=== PATIENT | male | born 1990 | race Caucasian/White ===

== ENCOUNTER 2020-10-29 03:24 | Emergency (ER) | payer OTHER, SELFPAY ==
[2020-10-29 03:27] VITALS: BP 170/88; PULSE 83; RESP 16; TEMP 36.1; O2SAT 100; BMI 34.4
--- NOTE | 2020-10-29 03:48 | ED.GENADULT ---
HPI - General Adult General Chief complaint: General Medical Stated complaint: BACK PAIN Time Seen by Provider: 10/29/20 03:48 History of Present Illness HPI narrative: Patient is a 30-year-old male with no significant past medical history. Presents today with having a bump that is noted in his back. Patient denies any fever chills. No nausea no vomiting. No bowel urinary incontinence. No focal weakness. Ambulates with a normal gait. Patient is able to have bowel movements. no trauma Review of Systems Review of Systems: Constitutional: No Weight loss, No Fever, No Chills, No Night Sweats, No Fatigue, No Malaise ENT/Mouth: No Hearing loss, No Ear Pain, No Nasal Congestion, No Sinus Pain, No Hoarseness, No sore throat, No Rhinorrhea, No Swallowing Difficulty Eyes: No Eye Pain, No Swelling, No Redness, No Foreign Body, No Discharge, No Vision Changes Cardiovascular: No Chest Pain, No SOB, No Dyspnea on Exertion, No Orthopnea, No Edema, No Palpitations Respiratory: No Cough, No Sputum, No Wheezing, No Smoke Exposure, No Dyspnea Gastrointestinal: No Nausea, No Vomiting, No Diarrhea, No Constipation, No abdominal Pain, No Hematochezia, No Melena Genitourinary: no irregular bleeding, No Dysuria, No Urinary Frequency, No Hematuria, No Urinary Incontinence, No Urgency, No Flank Pain, No Urinary Flow Changes, No Hesitancy Musculoskeletal: No joint pain, No Myalgias, No Joint Swelling Skin: No Skin Lesions, No rash Neuro: No Weakness, No Numbness, No Paresthesias, No Loss of Consciousness, No Dizziness, No Headache Psych: No Anxiety/Panic, No Depression, No SI/HI/AH/VH, No Social Issues, Heme/Lymph: No Bruising, No Bleeding,No Lymphadenopathy Endocrine: No Polyuria, No Polydipsia, No Temperature Intolerance [facility] Past Medical History Attestation statement: The following information was validated with the patient. Medical History Anxiety Depressed Physical Exam Vital Signs: Vital Signs: Last Vital Signs Temp 96.9 F 10/29/20 03:27 Pulse 83 10/29/20 03:27 Resp 16 10/29/20 03:27 BP 170/88 H 12/07/20 03:27 Pulse Ox 100 10/29/20 03:27 Body Mass Index 34.4 Appearance: Alert. Oriented X3. No acute distress. Eyes: Pupils equal, round and reactive to light. ENT: Pharynx normal. Neck: Normal inspection. Neck supple. No lymph nodes noted. No crepitus CVS: Normal heart rate and rhythm. Pulses normal. Normal S1 and S2 Respiratory: No respiratory distress. Breath sounds normal. No Wheezing. No rales Abdomen: Soft and nontender. No rigidity. No distention. good BS x4 Skin: Skin warm and dry. Normal skin color. Normal skin turgor. examination of the back on the right side there is 3 cm x 3 cm movable mass. There is no paraspinal muscle tenderness elicited. There is no spinal tenderness elicited. Extremities: No lower extremity edema. Neurovascular intact to all extremities. No Lacerations. No Rash Neuro: Oriented X 3. No motor deficit. No sensory deficit. Moving all extermities. No slurred speech Medical Decision Making MDM Narrative Medical decision making narrative: Well-appearing no acute distress. Exam was negative. Question lipoma noted. Will have patient follow-up on an outpatient basis the symptom has been ongoing for months. In stable condition. Discharge Plan Discharge Clinical Impression: Lipoma Patient Disposition: Home, Self-Care Instructions: Lipoma (ED) Referrals: Indira Harry MD [Primary Care Provider] - 2 days
== END 2020-10-29 04:00 | disposition home or self-care (01) ==
LOC: HO.ED 04:23
PROVIDERS: Emergency Provider Emergency Medicine Emergency Medical Services; PCP Internal Medicine
DX: D17.1 Benign lipomatous neoplasm of skin and subcutaneous tissue of trunk (principal)
CPT/HCPCS: 99283

== ENCOUNTER 2021-08-26 16:36 | Outpatient (REF) | payer OTHER, SELFPAY ==
[2021-08-26 17:00] LABS: MANUAL DIFF FLAG NO
[2021-08-26 18:06] LABS: Basophils Absolute Auto 0.1 X10*3/uL (0.0-0.2); Basophils Percent Auto 0.9 % (0-2); Eosinophils Absolute Auto 0.3 X10*3/uL (0.0-0.4); Eosinophils Percent Auto 3.9 % (0-4); Hematocrit 41.8 % (42-52); Hemoglobin 14.3 g/dl (14.0-18.0); Imm Gran Abs Auto 0.04 X10*3/uL (0.00-0.03); Imm Gran Pct Auto 0.5 % (0.0-0.4); Lymphocytes Absolute Auto 1.8 X10*3/uL (1.2-4.9); Lymphocytes Percent Auto 24.3 % (20-40); Mean Corpuscular HGB Conc 34.2 g/dl (31.0-36.0); Mean Corpuscular Hemoglobin 29.2 pg (27.0-33.0); Mean Corpuscular Volume 85.3 fL (80-98); Mean Platelet Volume 9.4 fL (9.4-12.4); Monocytes Absolute Auto 1.1 X10*3/uL (0.1-1.2); Monocytes Percent Auto 14.1 % (2-11); Neutrophils Absolute Auto 4.2 X10*3/uL (2.0-8.3); Neutrophils Percent Auto 56.3 % (45-73); Platelet Count 348 X10*3/uL (160-400); Red Cell Distribution Width 11.7 % (11.0-16.0); White Blood Count 7.5 X10*3/uL (4.8-10.8)
[2021-08-26 18:28] LABS: Alanine Aminotransferase 61 U/L (0-40); Albumin Level 4.5 g/dL (3.5-5.0); Alkaline Phosphatase 67 U/L (39-117); Anion Gap 13 (12-20); Aspartate Amino Transferase 34 U/L (5-37); Bilirubin Total 1.6 mg/dL (0.0-1.0); Blood Urea Nitrogen 13 mg/dL (9-16); Calcium 9.5 mg/dL (8.4-10.2); Carbon Dioxide 27 mmol/L (22-29); Chloride 103 mmol/L (96-108); Cholesterol 246 mg/dL; Estimated Glomerular Filt Rate > 60; Glucose Random 86 mg/dL (60-115); HDL Cholesterol 40 mg/dL; Potassium 4.3 mmol/L (3.3-5.1); Sodium 139 mmol/L (135-145); Total Protein 7.5 g/dL (6.5-8.0); Triglycerides 442 mg/dL
[2021-08-26 18:50] LABS: Free T4 (Free Thyroxine) 1.03 ng/dL (0.71-1.85); Thyroid Stimulating Hormone 1.33 uIU/mL (0.32-4.0)
[2021-08-26 19:00] LABS: Folate 17.5 ng/mL (> or = 4.0); Vitamin B12 229 pg/mL (200-900)
== END 2021-08-26 16:37 | disposition home or self-care (01) ==
LOC: HO.LAB 16:36
PROVIDERS: Visit Provider Internal Medicine
DX: E78.00 Pure hypercholesterolemia, unspecified (principal)
CPT/HCPCS: 36415; 80053; 80061; 82607; 82746; 84439; 84443; 85025

== ENCOUNTER → 2021-09-26 15:34 | Outpatient (BNVA) | payer OTHER, SELFPAY | PROVIDERS: PCP Internal Medicine; Referring Provider Internal Medicine; Visit Provider Surgery | DX: L72.0 Epidermal cyst (principal) | CPT/HCPCS: 99202 ==

== ENCOUNTER 2022-01-09 09:58 | Outpatient (REF) | payer OTHER, SELFPAY ==
--- NOTE | ~2022-01-09 | US_ITS ---
EXAMINATION: US ABDOMEN COMPLETE CLINICAL INFORMATION: Other specify abnormal findings of blood chemistry. COMPARISON: Ultrasound abdomen 02/22/2015. TECHNIQUE: Real-time imaging of the abdominal viscera. FINDINGS: PANCREAS: The majority of the pancreas is obscured by overlying bowel gas. The visualized portions of the pancreatic head are within normal limits. ABDOMINAL AORTA: The proximal, mid, and distal segments are normal in caliber. INFERIOR VENA CAVA: Visualized portions are normal. LIVER: The liver is normal in size. The liver contour is normal. There is diffuse increased liver parenchymal echogenicity, consistent with hepatic steatosis. No focal hepatic lesion. There is no intrahepatic biliary duct dilatation seen. GALLBLADDER: Normal. The gallbladder is physiologically distended without evidence of stones, sludge, polyps, wall thickening or pericholecystic fluid. COMMON BILE DUCT: Normal in caliber measuring 0.4 cm in diameter. RIGHT KIDNEY: Normal. No hydronephrosis. No renal calculi or focal parenchymal lesions. The kidney measures 10.4 cm in maximum dimension. LEFT KIDNEY: Normal. No hydronephrosis. No renal calculi or focal parenchymal lesions. The kidney measures 10.8 cm in maximum dimension. SPLEEN: Normal. The spleen measures 8.9 cm in maximum dimension. FREE FLUID: None. US/US abdomen complete IMPRESSION: Examination is partially limited due to shadowing from overlying bowel gas. Specifically, the majority of the pancreas is obscured. Increased liver echogenicity is most consistent with hepatic steatosis. Otherwise, normal examination.
== END 2022-01-09 09:59 | disposition home or self-care (01) ==
LOC: HO.US 09:58
PROVIDERS: PCP Internal Medicine; Visit Provider Internal Medicine
DX: R79.89 Other specified abnormal findings of blood chemistry (principal); E80.6 Other disorders of bilirubin metabolism
CPT/HCPCS: 76700

== ENCOUNTER 2023-02-23 13:55 | Outpatient (REF) | payer OTHER, SELFPAY ==
[2023-02-23 14:05] LABS: MANUAL DIFF FLAG NO
[2023-02-23 14:19] LABS: Basophils Absolute Auto 0.1 X10*3/uL (0.0-0.2); Basophils Percent Auto 1.1 % (0-2); Eosinophils Absolute Auto 0.1 X10*3/uL (0.0-0.4); Eosinophils Percent Auto 2.4 % (0-4); Hemoglobin 15.7 g/dl (14.0-18.0); Imm Gran Abs Auto 0.02 X10*3/uL (0.00-0.03); Imm Gran Pct Auto 0.4 % (0.0-0.4); Lymphocytes Absolute Auto 1.6 X10*3/uL (1.2-4.9); Lymphocytes Percent Auto 29.3 % (20-40); Mean Corpuscular HGB Conc 34.1 g/dl (31.0-36.0); Mean Corpuscular Hemoglobin 29.1 pg (27.0-33.0); Mean Corpuscular Volume 85.2 fL (80.0-98.0); Mean Platelet Volume 9.6 fL (9.4-12.4); Monocytes Absolute Auto 0.6 X10*3/uL (0.1-1.2); Monocytes Percent Auto 10.4 % (2-11); Neutrophils Absolute Auto 3.1 x10*3/uL (2.0-8.3); Neutrophils Percent Auto 56.4 % (45-73); Platelet Count 374 X10*3/uL (160-400); Red Cell Distribution Width 11.5 % (11.0-16.0); White Blood Count 5.5 X10*3/uL (4.8-10.8)
[2023-02-23 15:06] LABS: Alanine Aminotransferase 24 U/L (0-40); Albumin Level 4.9 g/dL (3.5-5.0); Alkaline Phosphatase 70 U/L (39-117); Anion Gap 15 (12-20); Aspartate Amino Transferase 20 U/L (5-37); Bilirubin Total 3.5 mg/dL (0.0-1.0); Blood Urea Nitrogen 13 mg/dL (9-16); Calcium 10.2 mg/dL (8.4-10.2); Carbon Dioxide 28 mmol/L (22-29); Chloride 105 mmol/L (96-108); Cholesterol 199 mg/dL; Estimated Glomerular Filt Rate > 60; Glucose Random 84 mg/dL (60-115); HDL Cholesterol 43 mg/dL; LDL Cholesterol Calculated 136 mg/dl; Potassium 4.5 mmol/L (3.3-5.1); Sodium 143 mmol/L (135-145); Total Protein 7.7 g/dL (6.5-8.0); Triglycerides 101 mg/dL
[2023-02-23 15:26] LABS: Folate 16.7 ng/mL (> or = 4.0); Free T4 (Free Thyroxine) 1.05 ng/dL (0.71-1.85); Vitamin B12 394 pg/mL (200-900)
== END 2023-02-23 13:56 | disposition home or self-care (01) ==
LOC: HO.LAB 13:55
PROVIDERS: PCP Internal Medicine; Visit Provider Internal Medicine
DX: E78.00 Pure hypercholesterolemia, unspecified (principal)
CPT/HCPCS: 36415; 80053; 80061; 82607; 82746; 84439; 84443; 85025

== ENCOUNTER 2023-04-12 18:36 | Emergency (ER) | payer OTHER, SELFPAY ==
--- NOTE | ~2023-04-12 | US_ITS ---
EXAMINATION: US ABDOMEN LIMITED CLINICAL INFORMATION: Gallbladder evaluation. COMPARISON: 01/09/2022 TECHNIQUE: Real-time imaging of the gallbladder. FINDINGS: Gallbladder is physiologically distended. No evidence of gallstones or sludge. Gallbladder wall thickness is within normal limits. Sonographic Bal sign is reportedly negative. Common bile duct measures 0.2 cm in diameter. US/US abdomen limited IMPRESSION: Normal appearance of the gallbladder.
--- NOTE | ~2023-04-12 | XR_ITS ---
EXAMINATION: XR ABDOMEN KUB CLINICAL INDICATION: Constipation COMPARISON: None available. TECHNIQUE: AP view of the abdomen. FINDINGS: Bowel gas pattern is nonobstructive. Scattered relatively mild amount of stool in the colon. No significant stool in the rectum. No suspicious calcifications are seen. No acute osseous findings are seen. XR/XR KUB IMPRESSION: Nonobstructive bowel gas pattern. Scattered mild volume of stool.
[2023-04-12 18:52] VITALS: BP 130/69; PULSE 86; RESP 16; TEMP 36.6; O2SAT 96; BMI 34.2
--- NOTE | 2023-04-12 19:44 | PC.NURSE ---
aox4 c/o n/v/sore thrt, abd pain for 3 months (abd pain) no apparent distress labs drawn and sent via tube system pt instructed to collect urine sample
[2023-04-12 19:49] LABS: MANUAL DIFF FLAG NO
[2023-04-12 19:51] LABS: Basophils Absolute Auto 0.1 X10*3/uL (0.0-0.2); Basophils Percent Auto 1.1 % (0-2); Eosinophils Absolute Auto 0.3 X10*3/uL (0.0-0.4); Eosinophils Percent Auto 5.1 % (0-4); Hematocrit 44.9 % (42.0-52.0); Hemoglobin 15.6 g/dl (14.0-18.0); Imm Gran Abs Auto 0.02 X10*3/uL (0.00-0.03); Imm Gran Pct Auto 0.3 % (0.0-0.4); Lymphocytes Absolute Auto 1.7 X10*3/uL (1.2-4.9); Lymphocytes Percent Auto 26.4 % (20-40); Mean Corpuscular HGB Conc 34.7 g/dl (31.0-36.0); Mean Corpuscular Hemoglobin 29.2 pg (27.0-33.0); Mean Corpuscular Volume 83.9 fL (80.0-98.0); Mean Platelet Volume 9.2 fL (9.4-12.4); Monocytes Absolute Auto 0.9 X10*3/uL (0.1-1.2); Monocytes Percent Auto 14.6 % (2-11); Neutrophils Absolute Auto 3.4 x10*3/uL (2.0-8.3); Neutrophils Percent Auto 52.5 % (45-73); Platelet Count 415 X10*3/uL (160-400); Red Blood Count 5.35 X10*6/uL (4.60-5.80); Red Cell Distribution Width 11.8 % (11.0-16.0); White Blood Count 6.4 X10*3/uL (4.8-10.8)
[2023-04-12 20:00] VITALS: BP 123/82; PULSE 77; RESP 16; TEMP 37.5; O2SAT 98
--- NOTE | 2023-04-12 20:00 | ED_ITS ---
HPI - General Adult General Chief complaint: Abdominal Pain Stated complaint: Abd pain/dizziness/weakness Time Seen by Provider: 04/12/23 19:37 Source: patient, RN notes reviewed and old records reviewed Mode of arrival: ambulatory Limitations: no limitations History of Present Illness HPI narrative: 33-year-old male presents for evaluation of upper abdominal pain weakness Patient reports he is ?felt off for 3 months. ? His pain is mostly left-sided He reports that he saw his doctor a month or 2 ago and had blood work and was told ?everything is normal. ? He was referred to Gastroenterology for have not yet seen them Patient states that his pain tends to be worse after eating He also complains of a sore throat and constipation Denies any history abdominal surgeries Denies any black or bloody stool No other complaints or concerns at this time. Related Data Previous Rx's Medication Instructions Recorded omeprazole 20 mg capsule,delayed 20 mg PO DAILY #30 caps 02/23/23 release omeprazole 20 mg capsule,delayed 20 mg PO DAILY #20 caps 04/12/23 release polyethylene glycol 3350 17 17 g PO DAILY 2 weeks #238 grams 04/12/23 gram/dose oral powder (Miralax) Allergies Allergy/AdvReac Type Severity Reaction Status Date / Time No Known Allergies Allergy Verified 04/12/23 18:51 Review of Systems Constitutional: Constitutional: Reports as per HPI, Denies chills, Denies fatigue, Denies fever(s) and Denies headache(s) ENT: Denies headache(s) Cardiovascular: Cardiovascular: Denies chest pain and Denies dyspnea Respiratory: Respiratory: Denies cough and Denies dyspnea Gastrointestinal: Gastrointestinal: Reports abdominal pain, Reports constipation, Denies diarrhea, Reports nausea and Denies vomiting Genitourinary: Genitourinary: Denies difficulty urinating and Denies dysuria Neurologic: Denies headache(s) and Denies focal weakness Endocrine: Endocrine: Denies fatigue [facility] Past Medical History Medical History (Updated 04/12/23 @ 23:06 by Wilmer Peters) Asthma Bipolar 1 disorder Epidermal cyst GERD (gastroesophageal reflux disease) Hyperbilirubinemia Hypercholesterolemia Insomnia Obesity (BMI 30-39.9) Surgical History History of chest tube placement Family History Family History Father Myocardial infarction Diabetes Mother Acute CVA (cerebrovascular accident) Maternal Grandfather Myocardial infarction Brother In good health Myocardial infarction Sister In good health Paternal Uncle Schizophrenia Other Mental health problem Substance abuse Social History Social History Housing: Apartment Alcohol intake: never Patient Tobacco Use Status: Never used Tobacco e-Cigarette/Vaping Use: Never Used Second Hand Smoke Exposure: Yes Advance Directives: No Advance Directives Information Provided: No service: No Current occupational status: disabled Cognitive needs: No Hearing needs: No Vision needs: Yes Physical Exam ED Vital Signs: Vital Signs - 24 hr 04/12/23 18:52 04/12/23 20:00 Temperature 97.8 F 99.5 F Pulse Rate 86 77 Respiratory Rate 16 16 Blood Pressure 130/69 123/82 Pulse Oximetry 96 98 Oxygen Delivery Method Room Air Room Air BMI result Body Mass Index 34.2 Const General: healthy appearing, comfortable, no acute distress, alert and awake Nutritional Appearance: well nourished Orientation/consciousness: patient oriented x3 HENMT Head: Yes normocephalic and Yes atraumatic Throat: Yes posterior oropharynx normal Resp Effort & Inspection: normal respiratory effort, no audible wheezes and not labored Cardio Rate: regular rate Rhythm: regular rhythm GI Inspection: No distended Palpation (GI): Soft to palpation, not firm, nontender, no guarding and not rigid Auscultation: normoactive bowel sounds Skin General skin exam: no rashes or lesions noted and elasticity normal Neuro General: patient oriented x3 Cranial nerves: Yes Bilaterally intact EOM present Cognition (Neuro): normal cognition Extrem Other: Moving all extremities well without any obvious deformities Medications Administered Discontinued Medications Generic Name Dose Route Start Last Admin Trade Name Freq PRN Reason Stop Dose Admin Al Hydroxide/Mg Hydroxide 30 ml 04/12/23 19:43 04/12/23 20:33 Magnesium Hydrox/Alum Hydrox 30 Ml Oral.Susp PO 04/12/23 19:44 30 ml ONCE ONE Administration Lidocaine HCl 15 ml 04/12/23 19:43 04/12/23 20:33 Lidocaine Hcl Viscous 2 % 15 Ml Solution MUCOUS MEM 04/12/23 19:44 15 ml ONCE ONE Administration Ondansetron HCl 4 mg 04/12/23 19:43 04/12/23 20:33 Ondansetron Odt 4 Mg Tab.Carly ALEXIS 04/12/23 19:44 4 mg ONCE ONE Administration Medical Decision Making Medical Decision Making [facility] Narrative: 33-year-old male presents for evaluation of abdominal pain. His symptoms have been present for 3 months, vital signs are stable, abdominal exam is reassuring. He has no rebound or guarding. Patient's history is most consistent with peptic ulcer disease. Will treat with GI cocktail while labs are pending. Will also get a KUB to evaluate for constipation but I doubt obstruction. Differential Diagnosis Abdominal pain Peptic ulcer disease Gastroenteritis Biliary disease Constipation Lab Data [facility] Lab Attestation statement: I reviewed the patient's lab results. (T bili was elevated at 3.7, therefore an ultrasound the gallbladder was ordered) 04/12/23 19:35 04/12/23 19:35 Labs: Lab Results 04/12/23 04/12/23 04/12/23 Range/Units 19:35 19:35 20:10 WBC 6.4 (4.8-10.8) X10*3/uL RBC 5.35 (4.60-5.80) X10*6/uL Hgb 15.6 (14.0-18.0) g/dl Hct 44.9 (42.0-52.0) % MCV 83.9 (80.0-98.0) fL MCH 29.2 (27.0-33.0) pg MCHC 34.7 (31.0-36.0) g/dl RDW 11.8 (11.0-16.0) % Plt Count 415 H (160-400) X10*3/uL MPV 9.2 L (9.4-12.4) fL Immature Gran % (Auto) 0.3 (0.0-0.4) % Neut % (Auto) 52.5 (45-73) % Lymph % (Auto) 26.4 (20-40) % [place] % (Auto) 14.6 H (2-11) % Eos % (Auto) 5.1 H (0-4) % Baso % (Auto) 1.1 (0-2) % Lymph # (Auto) 1.7 (1.2-4.9) X10*3/uL [place] # (Auto) 0.9 (0.1-1.2) X10*3/uL Eos # (Auto) 0.3 (0.0-0.4) X10*3/uL Baso # (Auto) 0.1 (0.0-0.2) X10*3/uL Abs Immat Gran (auto) 0.02 (0.00-0.03) X10*3/uL Absolute Neuts (auto) 3.4 (2.0-8.3) x10*3/uL Absolute Nucleated RBC 0.000 (0.0-0.012) X10*3/uL Nucleated RBC % (auto) 0.0 (0.0-0.2) /100WBC Sodium 142 (135-145) mmol/L Potassium 4.0 (3.3-5.1) mmol/L Chloride 107 (96-108) mmol/L Carbon Dioxide 26 (22-29) mmol/L Anion Gap 13 (12-20) BUN 12 (9-16) mg/dL Creatinine 1.03 (0.5-1.4) mg/dL Estim Creat Clear Calc 105.2 Estimated GFR > 60 Random Glucose 70 (60-115) mg/dL Calcium 9.8 (8.4-10.2) mg/dL Total Bilirubin 3.7 H (0.0-1.0) mg/dL AST 41 H (5-37) U/L ALT 37 (0-40) U/L Alkaline Phosphatase 68 (39-117) U/L Total Protein 7.4 (6.5-8.0) g/dL Albumin 4.6 (3.5-5.0) g/dL Urine Color Urine Appearance Urine pH (5.0-9.0) Ur Specific [place] (1.005-1.025) Urine Protein (Neg-Trace) mg/dL Urine Glucose (UA) (Negative) mg/dL Urine Ketones (Negative) mg/dL Urine Blood (Negative) Urine Nitrite (Negative) Ur Leukocyte Esterase (Negative) Urine RBC (0-2) /HPF Urine WBC (0-5) /HPF Ur Squamous Epith Cells (0-2) /HPF Calcium Oxalate Crystal Urine Bacteria (None Seen) Hyaline Casts (0-2) /LPF COVID-19 (BRYNN) (Negative) COVID-19 Clin Com Influenza Type A (LEIGHA) Negative (Negative) Influenza Type B (LEIGHA) Negative (Negative) Influenza A & B Note See Note 04/12/23 04/12/23 Range/Units 20:10 20:51 WBC (4.8-10.8) X10*3/uL RBC (4.60-5.80) X10*6/uL Hgb (14.0-18.0) g/dl Hct (42.0-52.0) % MCV (80.0-98.0) fL MCH (27.0-33.0) pg MCHC (31.0-36.0) g/dl RDW (11.0-16.0) % Plt Count (160-400) X10*3/uL MPV (9.4-12.4) fL Immature Gran % (Auto) (0.0-0.4) % Neut % (Auto) (45-73) % Lymph % (Auto) (20-40) % [place] % (Auto) (2-11) % Eos % (Auto) (0-4) % Baso % (Auto) (0-2) % Lymph # (Auto) (1.2-4.9) X10*3/uL [place] # (Auto) (0.1-1.2) X10*3/uL Eos # (Auto) (0.0-0.4) X10*3/uL Baso # (Auto) (0.0-0.2) X10*3/uL Abs Immat Gran (auto) (0.00-0.03) X10*3/uL Absolute Neuts (auto) (2.0-8.3) x10*3/uL Absolute Nucleated RBC (0.0-0.012) X10*3/uL Nucleated RBC % (auto) (0.0-0.2) /100WBC Sodium (135-145) mmol/L Potassium (3.3-5.1) mmol/L Chloride (96-108) mmol/L Carbon Dioxide (22-29) mmol/L Anion Gap (12-20) BUN (9-16) mg/dL Creatinine (0.5-1.4) mg/dL Estim Creat Clear Calc Estimated GFR Random Glucose (60-115) mg/dL Calcium (8.4-10.2) mg/dL Total Bilirubin (0.0-1.0) mg/dL AST (5-37) U/L ALT (0-40) U/L Alkaline Phosphatase (39-117) U/L Total Protein (6.5-8.0) g/dL Albumin (3.5-5.0) g/dL Urine Color Yellow Urine Appearance Turbid Urine pH 5.5 (5.0-9.0) Ur Specific [place] 1.025 (1.005-1.025) Urine Protein 30 (1+) H (Neg-Trace) mg/dL Urine Glucose (UA) Negative (Negative) mg/dL Urine Ketones Trace (Negative) mg/dL Urine Blood Negative (Negative) Urine Nitrite Negative (Negative) Ur Leukocyte Esterase Negative (Negative) Urine RBC 0-2 (0-2) /HPF Urine WBC 0-5 (0-5) /HPF Ur Squamous Epith Cells 0-2 (0-2) /HPF Calcium Oxalate Crystal Present Urine Bacteria None Seen (None Seen) Hyaline Casts 0-2 (0-2) /LPF COVID-19 (BRYNN) Negative (Negative) COVID-19 Clin Com See Note Influenza Type A (LEIGHA) (Negative) Influenza Type B (LEIGHA) (Negative) Influenza A & B Note Independent Interpretation I performed an independent interpretation of an: Plain X-Ray (Moderate constipation) and Ultrasound Radiology Impression Discussion of test interpretation with radiology: I have reviewed the radiologist's reading. Radiologist Impression: Unremarkable gallbladder ultrasound Discharge Plan Discharge Clinical Impression: Acute upper abdominal pain, Constipation Patient Disposition: Home, Self-Care Instructions: Peptic Ulcer (ED) Additional Instructions: Your pain is most likely related to gastritis and/or a stomach ulcer. Take omeprazole daily for the next 2 weeks Avoid spicy, greasy foods Follow-up with GI, Dr. Melvin Take MiraLax every night for the next 2 weeks to help treat constipation Increase fluid intake Increase fiber intake Prescriptions: New omeprazole 20 mg capsule,delayed release(DR/EC) 20 mg PO DAILY Qty: 20 0RF polyethylene glycol 3350 [Miralax] 17 gram/dose powder 17 g PO DAILY 14 Days Qty: 238 0RF No Action omeprazole 20 mg capsule,delayed release(DR/EC) 20 mg PO DAILY Qty: 30 0RF Referrals: Cj Melvin [Physician] - (? endoscopy for peptic ulcer disease)
[2023-04-12 20:05] LABS: Alanine Aminotransferase 37 U/L (0-40); Albumin Level 4.6 g/dL (3.5-5.0); Alkaline Phosphatase 68 U/L (39-117); Anion Gap 13 (12-20); Aspartate Amino Transferase 41 U/L (5-37); Bilirubin Total 3.7 mg/dL (0.0-1.0); Blood Urea Nitrogen 12 mg/dL (9-16); Calcium 9.8 mg/dL (8.4-10.2); Carbon Dioxide 26 mmol/L (22-29); Chloride 107 mmol/L (96-108); Creatinine Clr Calc Pharmacy 105.2; Estimated Glomerular Filt Rate > 60; Glucose Random 70 mg/dL (60-115); Sodium 142 mmol/L (135-145); Total Protein 7.4 g/dL (6.5-8.0)
--- NOTE | 2023-04-12 20:25 | MHC.EDTECH ---
pt vitals sign taken and covid and flu swab collected and sent to lab .
[2023-04-12] MEDS: Lidocaine HCl Viscous 2 % 15 ML SOLUTION MUCOUS MEM (20:33)
[2023-04-12] MEDS: Ondansetron ODT 4 MG TAB.RAPDIS TRANSLINGU (20:33)
[2023-04-12] MEDS: Magnesium Hydrox/Alum Hydrox 30 ML ORAL.SUSP PO (20:33)
[2023-04-12 20:35] LABS: COVID-19 Test Negative (Negative); IDNOW Serial# 9DB6401D; IDNOW Serial# BCCEAD1C; Influenza A Negative (Negative); Influenza B2 Negative (Negative)
--- NOTE | 2023-04-12 20:54 | PC.NURSE ---
labs for urine sent to lab via tube system
[2023-04-12 21:13] LABS: Appearance Urine Turbid; Color Urine Yellow; Glucose Urine UA Negative (Negative); Leukocyte Esterase Urine Negative (Negative); Nitrite Urine Negative (Negative); PH 5.5 (5.0-9.0); Specific Gravity - Urine 1.025 (1.005-1.025); UMIC TRIGGER UACC YES; Urine Blood Negative (Negative); Urine Ketones Trace mg/dL (Negative); Urine Protein 30 (1+) mg/dL (Neg-Trace)
[2023-04-12 21:27] LABS: Bacteria Urine None Seen (None Seen); Calcium Oxalate Crystals Urine Present; Hyaline Casts Urine 0-2 /LPF (0-2); RBC Urine 0-2 /HPF (0-2); Squamous Epithelial Cell Urine 0-2 /HPF (0-2); WBC Urine 0-5 /HPF (0-5)
[2023-04-12 22:00] VITALS: BP 118/57; PULSE 67; RESP 19; TEMP 37.1; O2SAT 97
--- NOTE | 2023-04-12 23:44 | PC.NURSE ---
abd pain resolved Discharge instructions given and explained to pt No apparent distress- pt denies pain Ambulates safely and independently AOx4
== END 2023-04-12 23:45 | disposition home or self-care (01) ==
PROVIDERS: Physician Assistant; Emergency Provider Internal Medicine; PCP Internal Medicine
DX: R10.13 Epigastric pain (principal); K59.00 Constipation, unspecified; Z20.822 Contact with and (suspected) exposure to COVID-19; Z20.828 Contact with and (suspected) exposure to other viral communicable diseases; Z79.899 Other long term (current) drug therapy
CPT/HCPCS: 36415; 74018; 76705; 80053; 81001; 85025; 87502; 87635; 99284

== ENCOUNTER 2023-04-21 08:15 | Outpatient (REF) | payer OTHER, SELFPAY ==
[2023-04-22 07:42] LABS: HIV AB/AG Nonreactive (Nonreactive); HIV Num 1 0.06 S/CO (0.00-0.99)
== END 2023-04-21 08:16 | disposition home or self-care (01) ==
LOC: HO.LAB 08:15
PROVIDERS: PCP Internal Medicine; Visit Provider Internal Medicine
DX: Z11.4 Encounter for screening for human immunodeficiency virus [HIV] (principal); R10.13 Epigastric pain
CPT/HCPCS: 36415; 87389

== ENCOUNTER 2023-04-21 21:58 | Emergency (ER) | payer OTHER, SELFPAY ==
[2023-04-21 22:05] VITALS: BP 119/71; PULSE 70; RESP 18; TEMP 36.1; O2SAT 100; BMI 32.6
[2023-04-21 22:31] LABS: MANUAL DIFF FLAG NO
[2023-04-21 22:36] LABS: Basophils Absolute Auto 0.1 X10*3/uL (0.0-0.2); Basophils Percent Auto 0.9 % (0-2); Eosinophils Absolute Auto 0.2 X10*3/uL (0.0-0.4); Eosinophils Percent Auto 2.9 % (0-4); Hematocrit 43.6 % (42.0-52.0); Hemoglobin 14.7 g/dl (14.0-18.0); Imm Gran Abs Auto 0.02 X10*3/uL (0.00-0.03); Imm Gran Pct Auto 0.3 % (0.0-0.4); Lymphocytes Absolute Auto 1.8 X10*3/uL (1.2-4.9); Lymphocytes Percent Auto 23.3 % (20-40); Mean Corpuscular HGB Conc 33.7 g/dl (31.0-36.0); Mean Corpuscular Hemoglobin 29.3 pg (27.0-33.0); Mean Corpuscular Volume 86.9 fL (80.0-98.0); Mean Platelet Volume 9.6 fL (9.4-12.4); Monocytes Percent Auto 13.4 % (2-11); Neutrophils Absolute Auto 4.5 x10*3/uL (2.0-8.3); Neutrophils Percent Auto 59.2 % (45-73); Platelet Count 342 X10*3/uL (160-400); Red Blood Count 5.02 X10*6/uL (4.60-5.80); White Blood Count 7.7 X10*3/uL (4.8-10.8)
[2023-04-21 22:52] LABS: Alanine Aminotransferase 24 U/L (0-40); Albumin Level 4.4 g/dL (3.5-5.0); Alkaline Phosphatase 63 U/L (39-117); Anion Gap 11 (12-20); Aspartate Amino Transferase 15 U/L (5-37); Bilirubin Direct 0.3 mg/dL (0.0-0.5); Bilirubin Total 1.7 mg/dL (0.0-1.0); Blood Urea Nitrogen 11 mg/dL (9-16); Calcium 9.7 mg/dL (8.4-10.2); Carbon Dioxide 26 mmol/L (22-29); Chloride 107 mmol/L (96-108); Creatinine Clr Calc Pharmacy 117.7; Estimated Glomerular Filt Rate > 60; Glucose Random 77 mg/dL (60-115); Lipase 25 U/L (8-78); Potassium 4.1 mmol/L (3.3-5.1); Sodium 140 mmol/L (135-145)
[2023-04-22 02:08] LABS: IDNOW Serial# 08D9AD1C; Strep A Nucleic Acid Negative (Negative)
[2023-04-22 02:33] LABS: Influenza A PCR NEGATIVE (Negative); Influenza B PCR NEGATIVE (Negative); Resp Syncy Virus RNA Qual PCR NEGATIVE (Negative); SARS COV2 PCR INHOUSE NEGATIVE (Negative)
--- NOTE | 2023-04-22 02:35 | ED_ITS ---
HPI - General Adult General Chief complaint: Abdominal Pain Stated complaint: abd pain, flu like symptoms Time Seen by Provider: 04/22/23 02:35 Source: patient Mode of arrival: ambulatory Limitations: no limitations History of Present Illness HPI narrative: Patient with multiple complaints complaining of sore throat, body aches upper abdominal pain for the last few months no nausea no vomiting no diarrhea no hist ory of gallstones patient does have history of bipolar disorder Related Data Previous Rx's Medication Instructions Recorded omeprazole 20 mg capsule,delayed 20 mg PO DAILY #30 caps 02/23/23 release omeprazole 20 mg capsule,delayed 20 mg PO DAILY #20 caps 04/12/23 release polyethylene glycol 3350 17 17 g PO DAILY 2 weeks #238 grams 04/12/23 gram/dose oral powder (Miralax) sucralfate 1 gram tablet 1 g PO BID #60 tabs 04/22/23 Allergies Allergy/AdvReac Type Severity Reaction Status Date / Time No Known Allergies Allergy Verified 04/12/23 18:51 Review of Systems Review of Systems: Yes all other systems are reviewed and are negative [facility] Past Medical History Medical History Asthma Bipolar 1 disorder Epidermal cyst GERD (gastroesophageal reflux disease) Hyperbilirubinemia Hypercholesterolemia Insomnia Obesity (BMI 30-39.9) Surgical History History of chest tube placement Family History Family History Father Myocardial infarction Diabetes Mother Acute CVA (cerebrovascular accident) Maternal Grandfather Myocardial infarction Brother In good health Myocardial infarction Sister In good health Paternal Uncle Schizophrenia Other Mental health problem Substance abuse Social History Social History Housing: Apartment Alcohol intake: never Patient Tobacco Use Status: Never used Tobacco e-Cigarette/Vaping Use: Never Used Second Hand Smoke Exposure: Yes Advance Directives: No Advance Directives Information Provided: No service: No Current occupational status: disabled Cognitive needs: No Hearing needs: No Vision needs: Yes Physical Exam ED Vital Signs: Vital Signs - 24 hr 04/21/23 22:05 Temperature 96.9 F Pulse Rate 70 Respiratory Rate 18 Blood Pressure 119/71 Pulse Oximetry 100 Oxygen Delivery Method Room Air BMI result Body Mass Index 32.6 Appearance: Alert. Oriented X3. No acute distress. Eyes: No pallor or icterus ENT: Pharynx normal. Oral Mucosa moist Neck: Normal inspection. Neck supple. CVS: Normal heart rate and rhythm. Pulses normal. Respiratory: No respiratory distress. Equal air entry bilateral, no wheezing/rales/rhonchi Abdomen: Soft, mild epigastric tenderness, Bowel sounds are present, no mass palpable, no CVA tenderness Skin: Skin warm and dry. Normal skin color. Normal skin turgor. Extremities: No lower extremity edema. No calf tenderness Neuro: Oriented X 3. No motor deficit. No sensory deficit.No cerebellar signs , cranial nerves II-XII intact Medical Decision Making Lab Data MDM Lab Attestation statement: I reviewed the patient's lab results. 04/21/23 22:23 04/21/23 22:23 Labs: Lab Results 04/21/23 04/21/23 04/22/23 Range/Units 22:23 22:23 01:51 WBC 7.7 (4.8-10.8) X10*3/uL RBC 5.02 (4.60-5.80) X10*6/uL Hgb 14.7 (14.0-18.0) g/dl Hct 43.6 (42.0-52.0) % MCV 86.9 (80.0-98.0) fL MCH 29.3 (27.0-33.0) pg MCHC 33.7 (31.0-36.0) g/dl RDW 12.0 (11.0-16.0) % Plt Count 342 (160-400) X10*3/uL MPV 9.6 (9.4-12.4) fL Immature Gran % (Auto) 0.3 (0.0-0.4) % Neut % (Auto) 59.2 (45-73) % Lymph % (Auto) 23.3 (20-40) % [place] % (Auto) 13.4 H (2-11) % Eos % (Auto) 2.9 (0-4) % Baso % (Auto) 0.9 (0-2) % Lymph # (Auto) 1.8 (1.2-4.9) X10*3/uL [place] # (Auto) 1.0 (0.1-1.2) X10*3/uL Eos # (Auto) 0.2 (0.0-0.4) X10*3/uL Baso # (Auto) 0.1 (0.0-0.2) X10*3/uL Abs Immat Gran (auto) 0.02 (0.00-0.03) X10*3/uL Absolute Neuts (auto) 4.5 (2.0-8.3) x10*3/uL Absolute Nucleated RBC 0.000 (0.0-0.012) X10*3/uL Nucleated RBC % (auto) 0.0 (0.0-0.2) /100WBC Sodium 140 (135-145) mmol/L Potassium 4.1 (3.3-5.1) mmol/L Chloride 107 (96-108) mmol/L Carbon Dioxide 26 (22-29) mmol/L Anion Gap 11 L (12-20) BUN 11 (9-16) mg/dL Creatinine 0.90 (0.5-1.4) mg/dL Estim Creat Clear Calc 117.7 Estimated GFR > 60 Random Glucose 77 (60-115) mg/dL Calcium 9.7 (8.4-10.2) mg/dL Total Bilirubin 1.7 H (0.0-1.0) mg/dL Direct Bilirubin 0.3 (0.0-0.5) mg/dL AST 15 (5-37) U/L ALT 24 (0-40) U/L Alkaline Phosphatase 63 (39-117) U/L Total Protein 7.0 (6.5-8.0) g/dL Albumin 4.4 (3.5-5.0) g/dL Lipase 25 (8-78) U/L Influenza Type A (PCR) NEGATIVE (Negative) Influenza Type B (PCR) NEGATIVE (Negative) RSV RNA Qual (PCR) NEGATIVE (Negative) SARS-CoV-2 RNA (RT-PCR) NEGATIVE (Negative) S. pyogenes GrpA LEIGHA (Negative) 04/22/23 Range/Units 01:51 WBC (4.8-10.8) X10*3/uL RBC (4.60-5.80) X10*6/uL Hgb (14.0-18.0) g/dl Hct (42.0-52.0) % MCV (80.0-98.0) fL MCH (27.0-33.0) pg MCHC (31.0-36.0) g/dl RDW (11.0-16.0) % Plt Count (160-400) X10*3/uL MPV (9.4-12.4) fL Immature Gran % (Auto) (0.0-0.4) % Neut % (Auto) (45-73) % Lymph % (Auto) (20-40) % [place] % (Auto) (2-11) % Eos % (Auto) (0-4) % Baso % (Auto) (0-2) % Lymph # (Auto) (1.2-4.9) X10*3/uL [place] # (Auto) (0.1-1.2) X10*3/uL Eos # (Auto) (0.0-0.4) X10*3/uL Baso # (Auto) (0.0-0.2) X10*3/uL Abs Immat Gran (auto) (0.00-0.03) X10*3/uL Absolute Neuts (auto) (2.0-8.3) x10*3/uL Absolute Nucleated RBC (0.0-0.012) X10*3/uL Nucleated RBC % (auto) (0.0-0.2) /100WBC Sodium (135-145) mmol/L Potassium (3.3-5.1) mmol/L Chloride (96-108) mmol/L Carbon Dioxide (22-29) mmol/L Anion Gap (12-20) BUN (9-16) mg/dL Creatinine (0.5-1.4) mg/dL Estim Creat Clear Calc Estimated GFR Random Glucose (60-115) mg/dL Calcium (8.4-10.2) mg/dL Total Bilirubin (0.0-1.0) mg/dL Direct Bilirubin (0.0-0.5) mg/dL AST (5-37) U/L ALT (0-40) U/L Alkaline Phosphatase (39-117) U/L Total Protein (6.5-8.0) g/dL Albumin (3.5-5.0) g/dL Lipase (8-78) U/L Influenza Type A (PCR) (Negative) Influenza Type B (PCR) (Negative) RSV RNA Qual (PCR) (Negative) SARS-CoV-2 RNA (RT-PCR) (Negative) S. pyogenes GrpA LEIGHA Negative (Negative) Discharge Plan Discharge Clinical Impression: Gastritis Patient Disposition: Home, Self-Care Instructions: Gastritis (ED) Additional Instructions: Avoid fried and spicy food Continue taking Prilosec Sucralfate 1 tablet twice a day Follow with PCP Prescriptions: New sucralfate 1 gram tablet 1 g PO BID Qty: 60 0RF No Action omeprazole 20 mg capsule,delayed release(DR/EC) 20 mg PO DAILY Qty: 20 0RF polyethylene glycol 3350 [Miralax] 17 gram/dose powder 17 g PO DAILY 14 Days Qty: 238 0RF omeprazole 20 mg capsule,delayed release(DR/EC) 20 mg PO DAILY Qty: 30 0RF Stand Alone Forms: Work/School Release Interventions: ED Discharge Assessment Last Done: 04/22/23 03:34 Discharge Date/Time: 04/22/23 03:44
== END 2023-04-22 03:44 | disposition home or self-care (01) ==
PROVIDERS: Emergency Provider Internal Medicine; PCP Internal Medicine
DX: K29.70 Gastritis, unspecified, without bleeding (principal); Z20.822 Contact with and (suspected) exposure to COVID-19; Z20.828 Contact with and (suspected) exposure to other viral communicable diseases
CPT/HCPCS: 0241U; 36415; 80048; 80076; 83690; 85025; 87651; 99282; 99283

== ENCOUNTER 2023-07-01 14:05 | Outpatient (AMB) | payer OTHER, SELFPAY ==
--- NOTE | 2023-07-01 14:12 | MHC.OFFVIS ---
Intake Vital Signs 07/01/23 14:15 Height 5 ft 4 in Weight 200 lb BMI 34.3 BP 107/55 L Blood Pressure Location Lt brachial Position Sitting Pulse 67 Intake Visit Reasons: Gastroesophageal reflux disease (GERD) Intake Note: Patient new consult for GERD. Patient cc: light headaches, abdominal pain/bloating on and off, constipation/diarrhea on and off, and some acid reflex come and go. Denies any other GI issues. 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 He is now mixing a tea- herbs- tumiric-dedrick clove of garlic and lemon- in an herbal tea- blends- sx have much imroved- avoids culprits He is worried about bacteria- no etoh or tobacco No N/V/ D, fever or chills PFSH Medical History Asthma Bipolar 1 disorder Epidermal cyst GERD (gastroesophageal reflux disease) Hyperbilirubinemia Hypercholesterolemia Insomnia Obesity (BMI 30-39.9) Plantar fasciitis of left foot Surgical History History of chest tube placement Family History Father Myocardial infarction Diabetes Mother Acute CVA (cerebrovascular accident) Maternal Grandfather Myocardial infarction Brother In good health Myocardial infarction Sister In good health Paternal Uncle Schizophrenia Other Mental health problem Substance abuse Social History Housing: Apartment Alcohol intake: never Patient Tobacco Use Status: Never used Tobacco e-Cigarette/Vaping Use: Never Used Second Hand Smoke Exposure: Yes service: No Current occupational status: disabled Cognitive needs: No Hearing needs: No Vision needs: Yes Review of Systems Const All systems reviewed & are unremarkable except as noted in HPI and below Card Denies chest pain and Denies dyspnea Resp Denies dyspnea GI Reports abdominal pain (random- improved), Denies bloating, Denies hematochezia, Denies change in bowel habits and Denies heartburn Physical Exam Vital Signs: Last Vital Signs Pulse 67 07/01/23 14:15 BP 107/55 L 07/01/23 14:15 BMI result Body Mass Index 34.3 Const General: cooperative, healthy appearing, comfortable, no acute distress and well developed Orientation/consciousness: patient oriented x3 Limitations: no limitations Resp Effort & Inspection: normal respiratory effort and able to speak in complete sentences Auscultation: clear to auscultation bilaterally and no wheezes Cardio Rate: regular rate Rhythm: regular rhythm Heart sounds: S1 normal heart sound present and S2 normal heart sound present GI Palpation (GI): Soft to palpation and nontender Auscultation: normal bowel sounds Skin General skin exam: no rashes or lesions noted Neuro General: patient oriented x3 Extrem General: Yes full ROM Psych Appearance: grossly normal and well kempt Mental Status: mental status grossly normal Speech and movement: Normal speech and movement present and Clear speech present Affect: normal affect Attitude: cooperative Thought process: Normal thought process present Thought content: Normal thought content present Insight: Good insight present (Psych) Judgement: Good judgement present (Psych) Results Reviewed Results Reviewed: US/US abdomen limited IMPRESSION: Normal appearance of the gallbladder. Assessment & Plan Assessment & Plan (1) GERD (gastroesophageal reflux disease): Code(s): K21.9 - Gastro-esophageal reflux disease without esophagitis Plan: avoid culprits Plan Reassurrance Continue to avoid culprits HP stool antigen Orders: Orders H pylori Ag Stool 07/01/23 A04.8 - Other specified bacterial intestinal infections Patient Instructions: A very pleasant 33 y/o M- vague GI symptoms-seemingly resolved with dietary modifications- H.pylori- stool antigen- call for results- if positive will treat Continue to avoid culprits Encouraged to call with questions or concerns. Coding Level of Care Code New Pt Level 3 (40752) Diagnoses GERD (gastroesophageal reflux disease) K21.9 Time Spent (min) 30
[2023-07-01 14:15] VITALS: BP 107/55; PULSE 67; BMI 34.3
== END 2023-07-01 14:40 | disposition home or self-care (01) ==
PROVIDERS: PCP Internal Medicine; Visit Provider Physician Assistant
DX: K21.9 Gastro-esophageal reflux disease without esophagitis (principal)
CPT/HCPCS: 99203

== ENCOUNTER → 2023-07-01 14:05 | Outpatient (BNVA) | payer OTHER, SELFPAY | PROVIDERS: PCP Internal Medicine; Visit Provider Physician Assistant | DX: K21.9 Gastro-esophageal reflux disease without esophagitis (principal) | CPT/HCPCS: 99202 ==

== ENCOUNTER 2023-08-28 07:03 | Emergency (ER) | payer OTHER, SELFPAY ==
[2023-08-28 07:08] VITALS: BP 116/63; PULSE 67; RESP 18; TEMP 36.3; O2SAT 97; BMI 34.3
--- NOTE | 2023-08-28 07:16 | ED.GENADULT ---
HPI - General Adult General Chief complaint: General Medical Stated complaint: Nausea Weak Etc Time Seen by Provider: 08/28/23 07:11 Source: patient Mode of arrival: ambulatory Limitations: no limitations History of Present Illness HPI narrative: 33 yo male with hx of bipolar disorder, GERD, asthma, HLD here with c/o 4 months of L flank pain that is burning. He also notes nausea and some weakness that has worsened. The past couple of days he has had yellow cough and sputum but no fevers. He also states a year ago he took himself off all of his medications because he didn't need them. He denies black or bloody stools, fevers, night sweats or unintentional weight loss. He states he started to feel more weak so he came in. MD complaint: weakness, nausea, flank pain Onset (ago): month(s) (4) Location: back and abdomen Radiation: non-radiation Severity: mild Quality: dull and constant Pain Consistency: intermittent Relieving factors: none Exacerbating factors: eating Associated symptoms: malaise, nausea/vomiting and weakness Treatments prior to arrival: none Related Data Previous Rx's Medication Instructions Recorded sennosides 8.6 mg-docusate sodium 2 tab-cap (2 x 8.6-50 mg) PO 04/27/23 50 mg tablet (Senna with Docusate BEDTIME #60 tabs Sodium) omeprazole 20 mg capsule,delayed 20 mg PO DAILY #90 caps 05/11/23 release Allergies Allergy/AdvReac Type Severity Reaction Status Date / Time No Known Allergies Allergy Verified 07/01/23 14:12 Review of Systems Review of Systems: Constitutional : No Weight loss, No Fever, No Chills ENT/Mouth : No sore throat, No Rhinorrhea Eyes: No Swelling, No Redness Cardiovascular : No Chest Pain, No SOB, NoEdema Respiratory : pos Cough, pos Sputum, No Wheezing Gastrointestinal : Positive Nausea, Positive Vomiting, no Diarrhea, positive abdominal Pain, No Hematochezia, No Melena Genitourinary : No Dysuria, No Urinary Frequency, No Hematuria, No Urgency Musculoskeletal : No joint pain, No Myalgias, No Joint Swelling Skin : No Skin Lesions, No rash Neuro : No Weakness, No Numbness, No Dizziness, No Headache Psych : No Anxiety/Panic, No Depression Heme/Lymph: No Bruising, No Lymphadenopathy Endocrine : No Polyuria, No Polydipsia All other systems reviewed and are negative. [facility] Past Medical History Attestation statement: The following information was validated with the patient. Source: old records reviewed Medical History Plantar fasciitis of left foot Epidermal cyst Hyperbilirubinemia Insomnia Bipolar 1 disorder GERD (gastroesophageal reflux disease) Hypercholesterolemia Obesity (BMI 30-39.9) Asthma Surgical History History of chest tube placement Family History Family History Father Myocardial infarction Diabetes Mother Acute CVA (cerebrovascular accident) Maternal Grandfather Myocardial infarction Brother In good health Myocardial infarction Sister In good health Paternal Uncle Schizophrenia Other Mental health problem Substance abuse Social History Social History Housing: Apartment Alcohol intake: never Patient Tobacco Use Status: Never used Tobacco Smoked in Last 30 Days: No e-Cigarette/Vaping Use: Never Used Second Hand Smoke Exposure: Yes Use of substances other than those prescribed or required for medical reasons: No Advance Directives: No Advance Directives Information Provided: Yes service: No Current occupational status: disabled Cognitive needs: No Hearing needs: No Vision needs: Yes Physical Exam ED Vital Signs: Vital Signs - 24 hr 08/28/23 07:08 08/28/23 07:27 Temperature 97.4 F Pulse Rate 67 96 Respiratory Rate 18 18 Blood Pressure 116/63 122/77 Pulse Oximetry 97 98 Oxygen Delivery Method Room Air Room Air BMI result Body Mass Index 34.3 Appearance: Alert. Oriented X3. No acute distress. Eyes: Pupils equal, round and reactive to light. ENT: Pharynx normal. Neck: Normal inspection. Neck supple. CVS: Normal heart rate and rhythm. Pulses normal. Respiratory: No respiratory distress. Breath sounds normal. Abdomen: Soft and nontender. L flank area normal Skin: Skin warm and dry. Normal skin color. Normal skin turgor. Extremities: No lower extremity edema. No calf ttp Neuro: Oriented X 3. No motor deficit. No sensory deficit. Medications Administered Discontinued Medications Generic Name Dose Route Start Last Admin Trade Name Freq PRN Reason Stop Dose Admin Sodium Chloride 1,000 mls @ 999 mls/hr 08/28/23 07:15 08/28/23 07:52 Ns IVCONT 08/28/23 08:15 999 mls/hr .Q1H1M JAYNE Administration Ketorolac Tromethamine 15 mg 08/28/23 07:14 08/28/23 07:52 Ketorolac Tromethamine 15 Mg/Ml Vial IVPUSH 08/28/23 07:15 15 mg ONCE ONE Administration Ondansetron HCl 4 mg 08/28/23 07:14 08/28/23 07:52 Ondansetron Hcl 4 Mg/2 Ml Vial IVPUSH 08/28/23 07:15 4 mg ONCE ONE Administration Medical Decision Making Medical Decision Making [facility] Narrative: 33 yo male with hx of bipolar disorder, GERD, asthma, HLD off of all medications for over a year due to not needing them per his decision here with multiple complaints 1. cough with yellow sputum but no fevers no dyspnea - CXR ordered. 2. L flank pain labs, UA and US ordered - could be viral, asthma, UTI, renal colic, renal cyst, MSK pain. Differential Diagnosis Differential Diagnoses: The differential diagnosis associated with the presentation includes renal colic, cyst, fatigue syndrome, MSK pain, URI, asthma, UTI Admission/Observation Consideration of admission/observation: Escalation of care including admission/observation considered not toxic, 4 months of issues can follow up with PCP. Lab Data [facility] Lab Attestation statement: I reviewed the patient's lab results. 08/28/23 07:36 08/28/23 07:36 Labs: Lab Results 08/28/23 08/28/23 Range/Units 07:36 07:58 WBC 4.9 (4.8-10.8) X10*3/uL RBC 4.73 (4.60-5.80) X10*6/uL Hgb 13.9 L (14.0-18.0) g/dl Hct 39.3 L (42.0-52.0) % MCV 83.1 (80.0-98.0) fL MCH 29.4 (27.0-33.0) pg MCHC 35.4 (31.0-36.0) g/dl RDW 11.4 (11.0-16.0) % Plt Count 322 (160-400) X10*3/uL MPV 9.1 L (9.4-12.4) fL Immature Gran % (Auto) 0.4 (0.0-0.4) % Neut % (Auto) 52.9 (45-73) % Lymph % (Auto) 27.4 (20-40) % [place] % (Auto) 15.0 H (2-11) % Eos % (Auto) 3.3 (0-4) % Baso % (Auto) 1.0 (0-2) % Lymph # (Auto) 1.3 (1.2-4.9) X10*3/uL [place] # (Auto) 0.7 (0.1-1.2) X10*3/uL Eos # (Auto) 0.2 (0.0-0.4) X10*3/uL Baso # (Auto) 0.1 (0.0-0.2) X10*3/uL Abs Immat Gran (auto) 0.02 (0.00-0.03) X10*3/uL Absolute Neuts (auto) 2.6 (2.0-8.3) x10*3/uL Absolute Nucleated RBC 0.000 (0.0-0.012) X10*3/uL Nucleated RBC % (auto) 0.0 (0.0-0.2) /100WBC Sodium 140 (135-145) mmol/L Potassium 3.8 (3.3-5.1) mmol/L Chloride 108 (96-108) mmol/L Carbon Dioxide 21 L (22-29) mmol/L Anion Gap 15 (12-20) BUN 11 (9-16) mg/dL Creatinine 0.70 (0.5-1.4) mg/dL Estim Creat Clear Calc 155.2 Estimated GFR > 60 Random Glucose 98 (60-115) mg/dL Calcium 9.3 (8.4-10.2) mg/dL Magnesium 2.0 (1.6-2.6) mg/dL Total Bilirubin 1.4 H (0.0-1.0) mg/dL Direct Bilirubin 0.4 (0.0-0.5) mg/dL AST 27 (5-37) U/L ALT 28 (0-40) U/L Alkaline Phosphatase 55 (39-117) U/L Total Protein 6.9 (6.5-8.0) g/dL Albumin 4.1 (3.5-5.0) g/dL Lipase 30 (8-78) U/L COVID-19 (BRYNN) Negative (Negative) COVID-19 Clin Com See Note Influenza Type A (LEIGHA) Negative (Negative) Influenza Type B (LEIGHA) Negative (Negative) Influenza A & B Note See Note Independent Interpretation I performed an independent interpretation of an: Plain X-Ray (no pneumonia) and Ultrasound (normal) Radiology Impression Discussion of test interpretation with radiology: I have reviewed the radiologist's reading. External Record Review External record reviewed: Office record Discharge Plan Discharge Clinical Impression: Weakness, Chronic flank pain Patient Disposition: Home, Self-Care Instructions: Weakness (ED), Flank Pain (ED) Additional Instructions: labs, urine, ultrasound and chest xray were all normal. given your chronic c/o weakness and feeling please follow up with your primary care doctor next week to further discuss how you are feeling. no acute findings today to explain your symptoms. negative flu and negative COVID. return for dizziness, fainting, chest pain, shortness of breath or any other concerns. Prescriptions: No Action omeprazole 20 mg capsule,delayed release(DR/EC) 20 mg PO DAILY Qty: 90 3RF sennosides-docusate sodium [Senna with Docusate Sodium] 8.6-50 mg tablet 2 tab-cap PO BEDTIME Qty: 60 9RF
[2023-08-28 07:27] VITALS: BP 122/77; PULSE 96; RESP 18; O2SAT 98
--- NOTE | 2023-08-28 07:28 | PC.NURSE ---
Patient reports started having abdominal issues about 6 months ago, reports that for the last few months has felt weak and fatigued as the day goes on. Reports that this morning when he woke up he had yellow flem and is worried about infection. Denies chest pain or sob, reports a headache on left side of head.
--- NOTE | 2023-08-28 10:07 | PC.NURSE ---
Discharge plan reviewed with patient who verbalized understanding
== END 2023-08-28 10:07 | disposition home or self-care (01) ==
PROVIDERS: Emergency Provider Emergency Medicine; PCP Internal Medicine
DX: R53.1 Weakness (principal); G89.29 Other chronic pain; R10.9 Unspecified abdominal pain; R11.2 Nausea with vomiting, unspecified; Z11.52 Encounter for screening for COVID-19; E78.00 Pure hypercholesterolemia, unspecified; E66.9 Obesity, unspecified; Z68.34 Body mass index [BMI] 34.0-34.9, adult
CPT/HCPCS: 36415; 71046; 76775; 80048; 80076; 81003; 83690; 83735; 85025; 87502; 87635; 96361; 96374; 96375; 99284; J1885; J2405

== ENCOUNTER 2024-05-31 17:08 | Emergency (ER) | payer OTHER, SELFPAY ==
[2024-05-31 17:26] VITALS: BP 133/81; PULSE 78; RESP 16; TEMP 36.9; O2SAT 97; BMI 39.5
--- NOTE | 2024-05-31 17:31 | ED_ITS ---
HPI - General Adult General Chief complaint: General Medical Stated complaint: nauseaus/dizzy/stomach pain Time Seen by Provider: 05/31/24 23:35 Source: patient Mode of arrival: ambulatory Limitations: no limitations History of Present Illness HPI narrative: Patient is a 34-year-old male who presents to the emergency department for evaluation of 3 days with intermittent nausea without vomiting and has been able to tolerate oral intake, intermittent dizziness, intermittent frontal headache, tactile fever, 1 episode of diarrhea. Denies any known sick contacts Denies neck pain, neck stiffness, chest pain, shortness of breath, difficulty breathing, cough, sore throat, abdominal pain, numbness or tingling of the extremities, genitourinary symptoms. Related Data Previous Rx's ?Medication ?Instructions ?Recorded sennosides 8.6 mg-docusate sodium 2 tab-cap (2 x 8.6-50 mg) PO 04/27/23 50 mg tablet (Senna with Docusate BEDTIME #60 tabs Sodium) omeprazole 20 mg capsule,delayed 20 mg PO DAILY #90 caps 05/11/23 release ondansetron 4 mg disintegrating 4 mg PO Q8H PRN nausea and 06/01/24 tablet vomiting #10 tabs Allergies Allergy/AdvReac Type Severity Reaction Status Date / Time No Known Allergies Allergy Verified 05/31/24 17:27 Review of Systems 2 Review of Systems: Yes all other systems are reviewed and are negative PMFSH Past Medical History Attestation statement: The following information was validated with the patient. Source: old records reviewed Medical History Plantar fasciitis of left foot Epidermal cyst Hyperbilirubinemia Insomnia Bipolar 1 disorder GERD (gastroesophageal reflux disease) Hypercholesterolemia Obesity (BMI 30-39.9) Asthma Surgical History History of chest tube placement Family History Family History Father Myocardial infarction Diabetes Mother Acute CVA (cerebrovascular accident) Maternal Grandfather Myocardial infarction Brother In good health Myocardial infarction Sister In good health Paternal Uncle Schizophrenia Other Mental health problem Substance abuse Social History Social History Housing: Apartment Alcohol intake: never Patient Tobacco Use Status: Never used Tobacco Smoked in Last 30 Days: No e-Cigarette/Vaping Use: Never Used Second Hand Smoke Exposure: Yes Advance Directives: No Advance Directives Information Provided: No service: No Current occupational status: disabled Cognitive needs: No Hearing needs: No Vision needs: Yes Physical Exam ED Vital Signs: Vital Signs - 24 hr 05/31/24 17:26 05/31/24 22:04 Temperature 98.5 F 98.1 F Pulse Rate 78 65 Respiratory Rate 16 20 Blood Pressure 133/81 111/59 L Pulse Oximetry 97 98 Oxygen Delivery Method Room Air Room Air BMI result Body Mass Index 39.5 Appearance: Alert.?Oriented to person, place and time. No acute distress.?Normal affect. Eyes: Pupils equal, round and reactive to light.? ENT: TM normal bilaterally. Pharynx normal.?? Neck: Normal inspection.? Neck supple.??No cervical adenopathy CVS: Heart sounds normal. Normal heart rate and rhythm.? Pulses normal.?? Respiratory: No respiratory distress.? Lung sounds clear to auscultation bilaterally?? Abdomen: Soft and non-tender. Normoactive bowel sounds. Skin: Skin warm and dry.? Normal skin color.? ? Extremities: No lower extremity edema.? Neuro: Moves all extremities spontaneously. Sensation intact bilaterally. No motor deficits. Ambulates with normal steady gait. Course Course Course Narrative: RME, this is a rapid medical exam performed by Anders Peters please refer to primary provider for complete H&P- 34-year-old male presents for evaluation nausea, dizziness, headaches for the last 3 days. He denies any known sick contacts. Plan for basic labs and viral swabs. He is quite well appearing on exam Medical Decision Making Medical Decision Making MDM Narrative: Patient is a 34-year-old male presenting to emergency department for evaluation of viral type symptoms COVID-19 testing is positive. Serum labs were obtained to exclude alternative pathology for gastrointestinal symptoms; CBC is without leukocytosis anemia or thrombocytopenia. No electrolyte derangement, no ALEN, chronically elevated total bilirubin without right upper quadrant tenderness upon palpation, mildly elevated ALT, do not suspect acute hepatobiliary etiology. Abdominal exam is benign. At this time history and physical exam not consistent with ACS/PE/pneumonia. Well-appearing, nontoxic, afebrile, no tachycardia or tachypnea/hypoxia. Speaking clear full sentences, ambulatory with steady gait. Discussed conservative treatment including rest, hydration, Tylenol/ibuprofen as needed for fever and body aches, saline nasal spray, humidifier, [id number] cold medication. Advised to follow-up with primary care provider as needed, discussed reasons to return back to the emergency department. All questions were answered. Patient discharged home in stable condition. Provided with a return to work/school note. Differential Diagnosis Differential Diagnoses: The differential diagnosis associated with the presentation includes ( See narrative above) Admission/Observation Consideration of admission/observation: Escalation of care including admission/observation considered ( see narrative above) Lab Data MDM Lab Attestation statement: I reviewed the patient's lab results. ( see narrative above) 05/31/24 18:02 05/31/24 18:02 Labs: Lab Results 05/31/24 Range/Units 18:02 WBC 5.9 (4.8-10.8) X10*3/uL RBC 4.76 (4.60-5.80) X10*6/uL Hgb 14.1 (14.0-18.0) g/dl Hct 40.5 L (42.0-52.0) % MCV 85.1 (80.0-98.0) fL MCH 29.6 (27.0-33.0) pg MCHC 34.8 (31.0-36.0) g/dl RDW 11.2 (11.0-16.0) % Plt Count 299 (160-400) X10*3/uL MPV 9.4 (9.4-12.4) fL Immature Gran % (Auto) 0.3 (0.0-0.4) % Neut % (Auto) 47.3 (45-73) % Lymph % (Auto) 27.5 (20-40) % [place] % (Auto) 17.6 H (2-11) % Eos % (Auto) 6.1 H (0-4) % Baso % (Auto) 1.2 (0-2) % Lymph # (Auto) 1.6 (1.2-4.9) X10*3/uL [place] # (Auto) 1.0 (0.1-1.2) X10*3/uL Eos # (Auto) 0.4 (0.0-0.4) X10*3/uL Baso # (Auto) 0.1 (0.0-0.2) X10*3/uL Abs Immat Gran (auto) 0.02 (0.00-0.03) X10*3/uL Absolute Neuts (auto) 2.8 (2.0-8.3) x10*3/uL Absolute Nucleated RBC 0.000 (0.0-0.012) X10*3/uL Nucleated RBC % (auto) 0.0 (0.0-0.2) /100WBC Sodium 142 (135-145) mmol/L Potassium 3.9 (3.3-5.1) mmol/L Chloride 106 (96-108) mmol/L Carbon Dioxide 26 (22-29) mmol/L Anion Gap 14 (12-20) BUN 11 (9-16) mg/dL Creatinine 0.91 (0.5-1.4) mg/dL Estim Creat Clear Calc 127.3 Estimated GFR > 60 Random Glucose 84 (60-115) mg/dL Calcium 9.2 (8.4-10.2) mg/dL Total Bilirubin 1.6 H (0.0-1.0) mg/dL AST 33 (5-37) U/L ALT 61 H (0-40) U/L Alkaline Phosphatase 70 (39-117) U/L Total Protein 7.6 (6.5-8.0) g/dL Albumin 4.5 (3.5-5.0) g/dL Lipase 22 (8-78) U/L Influenza Type A (PCR) NEGATIVE (Negative) Influenza Type B (PCR) NEGATIVE (Negative) RSV RNA Qual (PCR) NEGATIVE (Negative) SARS-CoV-2 RNA (RT-PCR) POSITIVE A (Negative) External Record Review External record reviewed: Outpatient record Prescription Management I considered prescription management with: Pain Medication ( acetaminophen/ibuprofen) and Other (Ondansetron) Discharge Plan Discharge Clinical Impression: COVID-19 Patient Disposition: Home, Self-Care Instructions: COVID-19 (Coronavirus Disease 2019) (ED) Additional Instructions: Be sure to rest, stay well hydrated drinking plenty of fluids, eat small frequent meals. Use Zofran as needed for nausea. Tylenol/ibuprofen can be used as needed for fever/pain. [id number] cold medications may be helpful as well for symptoms. Saline nasal spray, humidifier may be helpful for nasal congestion. You may return to the emergency department with any new or worsening symptoms or concerns. Follow-up with your primary care provider as needed. Should remain out of school/ work until symptoms have resolved and have been without a fever for 24 hours without the use of Tylenol or ibuprofen. Prescriptions: New ondansetron 4 mg tablet,disintegrating 4 mg PO Q8H PRN (Reason: nausea and vomiting) Qty: 10 0RF No Action omeprazole 20 mg capsule,delayed release(DR/EC) 20 mg PO DAILY Qty: 90 3RF sennosides-docusate sodium [Senna with Docusate Sodium] 8.6-50 mg tablet 2 tab-cap PO BEDTIME Qty: 60 9RF Referrals: Piero,Indira Murcia MD [Primary Care Provider] - Stand Alone Forms: Work/School Release Print Language: Dominican
[2024-05-31 18:06] LABS: MANUAL DIFF FLAG NO
[2024-05-31 18:21] LABS: Alanine Aminotransferase 61 U/L (0-40); Albumin Level 4.5 g/dL (3.5-5.0); Alkaline Phosphatase 70 U/L (39-117); Anion Gap 14 (12-20); Aspartate Amino Transferase 33 U/L (5-37); Bilirubin Total 1.6 mg/dL (0.0-1.0); Blood Urea Nitrogen 11 mg/dL (9-16); Calcium 9.2 mg/dL (8.4-10.2); Carbon Dioxide 26 mmol/L (22-29); Chloride 106 mmol/L (96-108); Creatinine Clr Calc Pharmacy 127.3; Estimated Glomerular Filt Rate > 60; Glucose Random 84 mg/dL (60-115); Lipase 22 U/L (8-78); Potassium 3.9 mmol/L (3.3-5.1); Sodium 142 mmol/L (135-145); Total Protein 7.6 g/dL (6.5-8.0)
[2024-05-31 18:24] LABS: Basophils Absolute Auto 0.1 X10*3/uL (0.0-0.2); Basophils Percent Auto 1.2 % (0-2); Eosinophils Absolute Auto 0.4 X10*3/uL (0.0-0.4); Eosinophils Percent Auto 6.1 % (0-4); Hematocrit 40.5 % (42.0-52.0); Hemoglobin 14.1 g/dl (14.0-18.0); Imm Gran Abs Auto 0.02 X10*3/uL (0.00-0.03); Imm Gran Pct Auto 0.3 % (0.0-0.4); Lymphocytes Absolute Auto 1.6 X10*3/uL (1.2-4.9); Lymphocytes Percent Auto 27.5 % (20-40); Mean Corpuscular HGB Conc 34.8 g/dl (31.0-36.0); Mean Corpuscular Hemoglobin 29.6 pg (27.0-33.0); Mean Corpuscular Volume 85.1 fL (80.0-98.0); Mean Platelet Volume 9.4 fL (9.4-12.4); Monocytes Percent Auto 17.6 % (2-11); Neutrophils Absolute Auto 2.8 x10*3/uL (2.0-8.3); Neutrophils Percent Auto 47.3 % (45-73); Platelet Count 299 X10*3/uL (160-400); Red Blood Count 4.76 X10*6/uL (4.60-5.80); Red Cell Distribution Width 11.2 % (11.0-16.0); White Blood Count 5.9 X10*3/uL (4.8-10.8)
[2024-05-31 18:43] LABS: Influenza A PCR NEGATIVE (Negative); Influenza B PCR NEGATIVE (Negative); Resp Syncy Virus RNA Qual PCR NEGATIVE (Negative); SARS COV2 PCR INHOUSE POSITIVE (Negative)
[2024-05-31 22:04] VITALS: BP 111/59; PULSE 65; RESP 20; TEMP 36.7; O2SAT 98
[2024-06-01 00:48] VITALS: BP 120/63; PULSE 64; RESP 16; TEMP 36.7; O2SAT 98
== END 2024-06-01 00:52 | disposition home or self-care (01) ==
PROVIDERS: Emergency Provider Emergency Medicine; PCP Internal Medicine
DX: U07.1 COVID-19 (principal); R11.0 Nausea; R42 Dizziness and giddiness; R51.9 Headache, unspecified; J45.909 Unspecified asthma, uncomplicated; K21.9 Gastro-esophageal reflux disease without esophagitis
CPT/HCPCS: 0241U; 80053; 83690; 85025; 99283; 99284

== ENCOUNTER 2024-07-17 15:27 | Emergency (ER) | payer OTHER, SELFPAY ==
[2024-07-17 15:32] VITALS: BP 130/76; PULSE 107; RESP 18; TEMP 37.4; O2SAT 95; BMI 40.1
--- NOTE | 2024-07-17 15:32 | ED.GENADULT ---
HPI - General Adult General Chief complaint: General Medical Stated complaint: Flu-like symptoms Time Seen by Provider: 07/17/24 21:49 Source: patient Mode of arrival: ambulatory Limitations: no limitations History of Present Illness ED Provider: Dr. Nicol Biswas HPI narrative: Patient comes to the emergency room complaining of diffuse body aches, chills, generalized malaise starting this morning. Patient also feeling nauseous, no vomiting or diarrhea, no significant abdominal pain, no headache. Patient did not take any medication prior to arrival. No known sick contacts Related Data Previous Rx's ?Medication ?Instructions ?Recorded sennosides 8.6 mg-docusate sodium 2 tab-cap (2 x 8.6-50 mg) PO 04/27/23 50 mg tablet (Senna with Docusate BEDTIME #60 tabs Sodium) omeprazole 20 mg capsule,delayed 20 mg PO DAILY #90 caps 05/11/23 release ondansetron 4 mg disintegrating 4 mg PO Q8H PRN nausea and 06/01/24 tablet vomiting #10 tabs ibuprofen 600 mg tablet 600 mg PO Q8H PRN fever or pain 07/17/24 #14 tabs ondansetron HCl 4 mg tablet 4 mg PO Q6H PRN nausea and 07/17/24 vomiting #10 tabs Allergies Allergy/AdvReac Type Severity Reaction Status Date / Time No Known Allergies Allergy Verified 07/17/24 15:34 Review of Systems Review of Systems: Constitutional : No Weight loss, complaining of chills, fatigue and generalized malaise ENT/Mouth : No Hearing loss, No Ear Pain, No Nasal Congestion, No Sinus Pain, No Hoarseness, No sore throat, No Rhinorrhea, No Swallowing Difficulty Eyes: No Eye Pain, No Swelling, No Redness, No Foreign Body, No Discharge, No Vision Changes Cardiovascular : No Chest Pain, No SOB, No Dyspnea on Exertion, No Orthopnea, No Edema, No Palpitations Respiratory : No Cough, No Sputum, No Wheezing, No Smoke Exposure, No Dyspnea Gastrointestinal : No Nausea, No Vomiting, No Diarrhea, No Constipation, No abdominal Pain, No Hematochezia, No Melena Genitourinary : no irregular bleeding, No Dysuria, No Urinary Frequency, No Hematuria, No Urinary Incontinence, No Urgency, No Flank Pain, No Urinary Flow Changes, No Hesitancy Musculoskeletal : No joint pain, complaining of diffuse Myalgias, No Joint Swelling Skin : No Skin Lesions, No rash Neuro : No Weakness, No Numbness, No Paresthesias, No Loss of Consciousness, No Dizziness, No Headache Psych : No Anxiety/Panic, No Depression, No SI/HI/AH/VH, No Social Issues, Heme/Lymph: No Bruising, No Bleeding,No Lymphadenopathy Endocrine : No Polyuria, No Polydipsia, No Temperature Intolerance [facility] Past Medical History Medical History Plantar fasciitis of left foot Epidermal cyst Hyperbilirubinemia Insomnia Bipolar 1 disorder GERD (gastroesophageal reflux disease) Hypercholesterolemia Obesity (BMI 30-39.9) Asthma Surgical History History of chest tube placement Family History Family History Father Myocardial infarction Diabetes Mother Acute CVA (cerebrovascular accident) Maternal Grandfather Myocardial infarction Brother In good health Myocardial infarction Sister In good health Paternal Uncle Schizophrenia Other Mental health problem Substance abuse Social History Social History Housing: Apartment Alcohol intake: never Patient Tobacco Use Status: Never used Tobacco e-Cigarette/Vaping Use: Never Used Second Hand Smoke Exposure: Yes Advance Directives: No Advance Directives Information Provided: No Do you have a plan to hurt others: No Plan service: No Current occupational status: disabled Cognitive needs: No Hearing needs: No Vision needs: Yes Physical Exam ED Vital Signs: Vital Signs - 24 hr 07/17/24 15:32 Temperature 99.3 F Pulse Rate 107 H Respiratory Rate 18 Blood Pressure 130/76 Pulse Oximetry 95 Oxygen Delivery Method Room Air BMI result Body Mass Index 40.1 Const Other: Appearance: Alert. Oriented X3. No acute distress. Eyes: Pupils equal, round and reactive to light. ENT: Pharynx normal. Neck: Normal inspection. Neck supple. No lymph nodes noted. No crepitus CVS: Normal heart rate and rhythm. Pulses normal. Normal S1 and S2 Respiratory: No respiratory distress. Breath sounds normal. No Wheezing. No rales Abdomen: Soft and nontender. No rigidity. No distention. Skin: Skin warm and dry. Normal skin color. Normal skin turgor. Extremities: No lower extremity edema. No Lacerations. No Rash Neuro: Oriented X 3. No motor deficit. No sensory deficit. Moving all extremities. No slurred speech. CN 2 through 12 grossly intact Psych: calm, cooperative, normal affect Course Course Course Narrative: This is a rapid medical exam performed by Noemi Rios NP: Additional HPI, ROS, PE not included below will be deferred to primary provider. Patient is a 34-year-old male with history of asthma, obesity, GERD, bipolar disorder presenting to the ED with complaint of chills, abdominal pain, flank pain, body aches, fatigue, diarrhea, nausea without vomiting since this morning. Plan: viral serology, UA Medical Decision Making Medical Decision Making [facility] Narrative: My interpretation of labs: Patient's serology test negative for RSV COVID, flu and strep. Urinalysis negative for UTI -patient likely experiencing a viral syndrome Differential Diagnosis Differential Diagnoses: The differential diagnosis associated with the presentation includes (As above) Lab Data [facility] Lab Attestation statement: I reviewed the patient's lab results. Labs: Lab Results 07/17/24 07/17/24 Range/Units 15:47 20:35 Urine Color Yellow Urine Appearance Clear Urine pH 6.0 (5.0-9.0) Ur Specific [place] >= 1.030 H (1.005-1.025) Urine Protein Trace (Neg-Trace) mg/dL Urine Glucose (UA) Negative (Negative) mg/dL Urine Ketones Trace (Negative) mg/dL Urine Blood Negative (Negative) Urine Nitrite Negative (Negative) Ur Leukocyte Esterase Negative (Negative) Influenza Type A (PCR) NEGATIVE (Negative) Influenza Type B (PCR) NEGATIVE (Negative) RSV RNA Qual (PCR) NEGATIVE (Negative) SARS-CoV-2 RNA (RT-PCR) NEGATIVE (Negative) S. pyogenes GrpA LEIGHA Negative (Negative) Discharge Plan Discharge Clinical Impression: Acute viral syndrome Patient Disposition: Home, Self-Care Instructions: Viral Syndrome (ED) Additional Instructions: Please follow-up with your primary care physician tomorrow. If you have any worsening or new symptoms, please return to the emergency room or call 911 Prescriptions: New ibuprofen 600 mg tablet 600 mg PO Q8H PRN (Reason: fever or pain) Qty: 14 0RF ondansetron HCl 4 mg tablet 4 mg PO Q6H PRN (Reason: nausea and vomiting) Qty: 10 0RF No Action omeprazole 20 mg capsule,delayed release(DR/EC) 20 mg PO DAILY Qty: 90 3RF ondansetron 4 mg tablet,disintegrating 4 mg PO Q8H PRN (Reason: nausea and vomiting) Qty: 10 0RF sennosides-docusate sodium [Senna with Docusate Sodium] 8.6-50 mg tablet 2 tab-cap PO BEDTIME Qty: 60 9RF Stand Alone Forms: Work/School Release Print Language: Greek
[2024-07-17 16:19] LABS: IDNOW Serial# 08D9AD1C; Strep A Nucleic Acid Negative (Negative)
[2024-07-17 17:03] LABS: Influenza A PCR NEGATIVE (Negative); Influenza B PCR NEGATIVE (Negative); Resp Syncy Virus RNA Qual PCR NEGATIVE (Negative); SARS COV2 PCR INHOUSE NEGATIVE (Negative)
[2024-07-17 20:46] LABS: Appearance Urine Clear; Color Urine Yellow; Glucose Urine UA Negative (Negative); Leukocyte Esterase Urine Negative (Negative); Nitrite Urine Negative (Negative); Specific Gravity - Urine >= 1.030 (1.005-1.025); Urine Blood Negative (Negative); Urine Ketones Trace mg/dL (Negative); Urine Protein Trace mg/dL (Neg-Trace)
[2024-07-17 22:18] VITALS: BP 130/76; PULSE 107; RESP 18; TEMP 37.4; O2SAT 95
== END 2024-07-17 22:19 | disposition home or self-care (01) ==
PROVIDERS: Registered Nurse Emergency; Emergency Provider Emergency Medicine; PCP Internal Medicine
DX: B34.9 Viral infection, unspecified (principal); M79.10 Myalgia, unspecified site; R11.0 Nausea; Z03.818 Encounter for observation for suspected exposure to other biological agents ruled out
CPT/HCPCS: 0241U; 81003; 87651; 99282

== ENCOUNTER 2024-10-25 13:31 | Outpatient (AMB) | payer OTHER, SELFPAY ==
[2024-10-25 13:36] VITALS: BP 122/78; PULSE 71; O2SAT 96; BMI 39.8
--- NOTE | 2024-10-25 13:36 | MHC.PC.OV ---
Vital Signs 10/25/24 13:36 Height 5 ft 4 in Weight 232 lb BMI 39.8 BP 122/78 Blood Pressure Location Lt brachial Position Sitting Pulse 71 Pulse Source Pulse Oximeter Pulse Oximetry (%) 96 Oxygen Delivery Method Room Air Intake Visit Reasons: Follow -Up Allergies No Known Allergies Allergy (Verified 10/25/24 13:37) Tobacco use date assessed: 10/25/24 Dental Screening Dental Screen Date: 10/25/24 Did you have a dental visit in the last 12 months?: Yes Did you have a dental problem in the last 6 months where you did not have access to dental care?: No Was dental information given to patient?: Patient has dentist HPI Follow -Up HPI Details 34-year-old obese male with hypercholesterolemia asthma GERD and bipolar disorder coming in for follow-up. Last seen in 2022. Review of the notes was in the emergency room in July 17 for viral illness. 06/11/2024 ER visit again COVID-10 September 2023 ER visit for nausea with flank pain workup has been negative. Patient did see Gastroenterology in 07/12/2023 for reflux problem reassurance. complains of tired and sleepy all day. sleeps by himself. Intermittent abd pain, no fever, no n no v, wakes up with a bad taste in the mouth, , no blood in stools, patient complains of feeling tired all day long patient does know that he snores but denies any shortness of breath or waking up. [facility] Medical History Plantar fasciitis of left foot Epidermal cyst Hyperbilirubinemia Insomnia Bipolar 1 disorder GERD (gastroesophageal reflux disease) Hypercholesterolemia Obesity (BMI 30-39.9) Asthma Surgical History History of chest tube placement Family History Father Myocardial infarction Diabetes Mother Acute CVA (cerebrovascular accident) Maternal Grandfather Myocardial infarction Brother In good health Myocardial infarction Sister In good health Paternal Uncle Schizophrenia Other Mental health problem Substance abuse Social History Housing: Apartment Alcohol intake: never Patient Tobacco Use Status: Never used Tobacco Tobacco use type: Cigarette e-Cigarette/Vaping Use: Never Used Second Hand Smoke Exposure: Yes service: No Current occupational status: disabled Cognitive needs: No Hearing needs: No Vision needs: Yes Questionnaire PHQ-9 Over the last 2 weeks, how often have you been bothered by any of the following problems? 1. Little interest or pleasure in doing things: not at all 2. Feeling down, depressed, or hopeless: not at all 3. Trouble falling or staying asleep, or sleeping too much: not at all 4. Feeling tired or having little energy: not at all 5. Poor appetite or overeating: not at all 6. Feeling bad about yourself - or that you are a failure or have let yourself or your family down: not at all 7. Trouble concentrating on things, such as reading the newspaper or watching television: not at all 8. Moving or speaking so slowly that other people could have noticed. Or the opposite - being so fidgety or restless that you have been moving around a lot more than usual: not at all 9. Thoughts that you would be better off or of hurting yourself in some way: not at all Total score: 0 Depression Screening Interpretation: Negative Depression Screening Done: Yes Source: Developed by Drs. Paresh Maldonado, Lizeth Layne, Kvng Hermosillo and colleagues, with an educational adelina from [employer]. Thrive Questionnaire Date Thrive assessed: 10/25/24 I am a: Patient What is your living situation today?: I have a steady place to live Within the past 12 months, did the food you bought not last and you didn't have the money to get more?: Never true Within the past 12 months, did you worry whether your food would run out before you got money to buy more?: Never true Do you have trouble paying for medicines?: No Do you have trouble getting transportation to medical appointments?: No Do you have trouble paying your heating and electricity bill?: No Do you have trouble taking care of your child, family member or friend?: No Do you have trouble with day-to-day activities such as bathing, preparing meals, shopping, managing finances, etc.?: No Are you currently unemployed and looking for a job?: No Are you interested in more education?: No Currently or been in a relationship where the following occur: No concerns reported THRIVE Score: 0 AUDIT C Alcohol Use Questionnaire (AUDIT-C) 1. How often do you have a drink containing alcohol?: Never 3. How often do you have six or more drinks on one occasion?: Never Total Score: 0 ZOILA-7 AMB Questionnaire ZOILA-7 Date ZOILA - 7 assessed: 10/25/24 Feeling nervous, anxious, or on edge: 0 = Not at all Not being able to stop or control worryin = Not at all Worrying too much about different things: 0 = Not at all Trouble relaxin = Not at all Being so restless that it is hard to sit still: 0 = Not at all Becoming easily annoyed or irritable: 0 = Not at all Feeling afraid as if something awful might happen: 0 = Not at all Total ZOILA-7 score (0-4 normal; 5-9 mild; 10-14 moderate; 15-21 severe): 0 Source: Developed by Drs. Paresh Maldonado, Lizeth Layne, Kvng Hermosillo and colleagues, with an educational adelina from [employer]. Physical exam (Primary Care) Vital Signs: Last Vital Signs Pulse 71 10/25/24 13:36 BP 122/78 10/25/24 13:36 Pulse Ox 96 10/25/24 13:36 Oxygen Delivery Method Room Air 10/25/24 13:36 BMI result Body Mass Index 39.8 Tobacco/Smoking Status: Tobacco use Status Tobacco use date assessed 10/25/24 10/25/24 13:42 Patient Tobacco Use Status Never used Tobacco 10/25/24 13:42 Tobacco use type Cigarette 10/25/24 13:42 e-Cigarette/Vaping Use Never Used 10/25/24 13:42 PHQ-9: PHQ-9 Score PHQ-9: Total score 0 10/25/24 13:42 Depression Screening Interpretation: Negative Thrive Assessment: Date of Thrive Assessment Date Thrive assessed 10/25/24 10/25/24 13:42 Currently or been in a relationship where the following occur: No concerns reported Const General: alert; No acute distress Eyes Conjunctivae: conjunctivae normal Resp Auscultation: clear to auscultation bilaterally Cardio Rate: regular rate Rhythm: regular rhythm GI Inspection: Yes normal to inspection Extrem General: Yes normal to inspection and No edema Coding Level of Care Code Est Pt Level 4 (92174) Diagnoses Obesity (BMI 30-39.9) E66.9 Mild intermittent asthma without complication J45.20 Asthma severity: mild Asthma persistence: intermittent Asthma complication type: uncomplicated Hypercholesterolemia E78.00 Gastroesophageal reflux disease without esophagitis K21.9 Esophagitis presence: without esophagitis Bipolar 1 disorder F31.9 Fatty liver K76.0 Slow transit constipation K59.01 Constipation type: slow transit constipation Frequency of micturition R35.0 Hypersomnia G47.10 Assessment & Plan Assessment & Plan (1) Obesity (BMI 30-39.9): Code(s): E66.9 - Obesity, unspecified Category: Medical Plan: Diet and exercise (2) Asthma: Code(s): J45.909 - Unspecified asthma, uncomplicated Category: Medical Qualifiers: Asthma severity: mild Asthma persistence: intermittent Asthma complication type: uncomplicated Qualified Code(s): J45.20 - Mild intermittent asthma, uncomplicated Plan: Stable and has not required any inhalers (3) Hypercholesterolemia: Code(s): E78.00 - Pure hypercholesterolemia, unspecified Category: Medical Plan: Avoid fried foods, chicken skin, eggs, butter margarine, pastries and meat. Be it pork or beef they have a lot of cholesterol LDL goal of less than 130 and triglyceride of less than 150. (4) GERD (gastroesophageal reflux disease): Code(s): K21.9 - Gastro-esophageal reflux disease without esophagitis Category: Medical Qualifiers: Esophagitis presence: without esophagitis Qualified Code(s): K21.9 - Gastro-esophageal reflux disease without esophagitis Plan: Avoid the foods that causes that usually spicy foods, tomato products, juices, coffee, soda and foods that your sensitive to. After eating do not lie down, allow 3-4 hours before in lie down. And keep the head of bed above 30 degrees to avoid the acid from going up. (5) Bipolar 1 disorder: Comment: [facility] Code(s): F31.9 - Bipolar disorder, unspecified Category: Medical Plan: Continue with counseling (6) Fatty liver: Code(s): K76.0 - Fatty (change of) liver, not elsewhere classified Category: Medical Plan: Low-fat diet and exercise (7) Constipation: Code(s): K59.00 - Constipation, unspecified Category: Medical Qualifiers: Constipation type: slow transit constipation Qualified Code(s): K59.01 - Slow transit constipation Plan: Three rules for constipation 1. Diet need to have a high fiber diet less of meat 2. Increase oral fluids 3. Exercise (8) Frequency of micturition: Code(s): R35.0 - Frequency of micturition Category: Medical Plan: Advised patient that we will do the blood work (9) Hypersomnia: Code(s): G47.10 - Hypersomnia, unspecified Category: Medical Plan: Sleep study requested (10) GERD (gastroesophageal reflux disease): Code(s): K21.9 - Gastro-esophageal reflux disease without esophagitis Category: Medical Qualifiers: Esophagitis presence: without esophagitis Qualified Code(s): K21.9 - Gastro-esophageal reflux disease without esophagitis Plan: Avoid the foods that causes that usually spicy foods, tomato products, juices, coffee, soda and foods that your sensitive to. After eating do not lie down, allow 3-4 hours before in lie down. And keep the head of bed above 30 degrees to avoid the acid from going up. Orders: Orders Complete Blood Count Auto Diff Today R35.0 - Frequency of micturition Comprehensive Met. Panel Today R35.0 - Frequency of micturition Free T4 (Free Thyroxine) Today R35.0 - Frequency of micturition Lipid Panel Today E78.00 - Pure hypercholesterolemia, unspecified, R35.0 - Frequency of micturition Vitamin B12 and Folate Today R35.0 - Frequency of micturition Hemoglobin A1c Today R35.0 - Frequency of micturition RT home sleep study Today G47.10 - Hypersomnia, unspecified Thyroid Stimulating Hormone Today R35.0 - Frequency of micturition UA CC w/rflx Micro + Cult Today R30.0 - Dysuria, R35.0 - Frequency of micturition
== END 2024-10-25 14:13 | disposition home or self-care (01) ==
PROVIDERS: PCP Internal Medicine; Visit Provider Internal Medicine
DX: J45.20 Mild intermittent asthma, uncomplicated (principal); E66.9 Obesity, unspecified; F31.9 Bipolar disorder, unspecified; Z68.39 Body mass index [BMI] 39.0-39.9, adult; E78.00 Pure hypercholesterolemia, unspecified; K21.9 Gastro-esophageal reflux disease without esophagitis; K76.0 Fatty (change of) liver, not elsewhere classified; K59.01 Slow transit constipation; R35.0 Frequency of micturition; G47.10 Hypersomnia, unspecified

== ENCOUNTER → 2024-10-25 13:31 | Outpatient (BNVA) | payer OTHER, SELFPAY | PROVIDERS: PCP Internal Medicine; Visit Provider Internal Medicine | DX: E66.9 Obesity, unspecified (principal); J45.20 Mild intermittent asthma, uncomplicated; K21.9 Gastro-esophageal reflux disease without esophagitis; F41.9 Anxiety disorder, unspecified; K76.0 Fatty (change of) liver, not elsewhere classified; K59.01 Slow transit constipation; R35.0 Frequency of micturition; G47.10 Hypersomnia, unspecified | CPT/HCPCS: 96127; 99212 ==

== ENCOUNTER 2025-01-25 16:39 | Outpatient (REF) | payer OTHER, SELFPAY ==
[2025-01-25 16:59] LABS: MANUAL DIFF FLAG NO
[2025-01-25 17:19] LABS: Basophils Absolute Auto 0.1 X10*3/uL (0.0-0.2); Basophils Percent Auto 0.9 % (0-2); Eosinophils Absolute Auto 0.2 X10*3/uL (0.0-0.4); Eosinophils Percent Auto 3.5 % (0-4); Hematocrit 41.6 % (42.0-52.0); Hemoglobin 14.4 g/dl (14.0-18.0); Imm Gran Abs Auto 0.03 X10*3/uL (0.00-0.03); Imm Gran Pct Auto 0.4 % (0.0-0.4); Lymphocytes Absolute Auto 1.9 X10*3/uL (1.2-4.9); Lymphocytes Percent Auto 27.7 % (20-40); Mean Corpuscular HGB Conc 34.6 g/dl (31.0-36.0); Mean Corpuscular Hemoglobin 29.6 pg (27.0-33.0); Mean Corpuscular Volume 85.6 fL (80.0-98.0); Mean Platelet Volume 9.7 fL (9.4-12.4); Monocytes Absolute Auto 0.9 X10*3/uL (0.1-1.2); Monocytes Percent Auto 12.7 % (2-11); Neutrophils Absolute Auto 3.8 x10*3/uL (2.0-8.3); Neutrophils Percent Auto 54.8 % (45-73); Platelet Count 337 X10*3/uL (160-400); Red Blood Count 4.86 X10*6/uL (4.60-5.80); Red Cell Distribution Width 11.4 % (11.0-16.0); White Blood Count 6.9 X10*3/uL (4.8-10.8)
[2025-01-25 17:27] LABS: Appearance Urine Clear; Color Urine Yellow; Glucose Urine UA Negative (Negative); Leukocyte Esterase Urine Negative (Negative); Nitrite Urine Negative (Negative); PH 5.5 (5.0-9.0); Specific Gravity - Urine >= 1.030 (1.005-1.025); Urine Blood Negative (Negative); Urine Ketones Trace mg/dL (Negative); Urine Protein Negative (Neg-Trace)
[2025-01-25 17:30] LABS: Estimated Average Glucose 105 mg/dL; Hemoglobin A1C 127.4182 umol/L; Hemoglobin A1c % 5.3 % (<6.0); Total Hemoglobin (HGBA1C) 3674.1821 umol/L
[2025-01-25 18:24] LABS: Alanine Aminotransferase 78 U/L (0-40); Albumin Level 4.3 g/dL (3.5-5.0); Alkaline Phosphatase 63 U/L (39-117); Anion Gap 11 (12-20); Aspartate Amino Transferase 40 U/L (5-37); Blood Urea Nitrogen 15 mg/dL (9-16); Calcium 9.6 mg/dL (8.4-10.2); Carbon Dioxide 27 mmol/L (22-29); Chloride 107 mmol/L (96-108); Cholesterol 211 mg/dL (<200); Estimated Glomerular Filt Rate > 60; Glucose Random 93 mg/dL (60-115); HDL Cholesterol 44 mg/dL (>40); LDL Cholesterol Calculated 92 mg/dL (<100); Potassium 3.8 mmol/L (3.3-5.1); Sodium 141 mmol/L (135-145); Total Protein 7.7 g/dL (6.5-8.0); Triglycerides 377 mg/dL (<150)
[2025-01-25 18:39] LABS: Folate 9.7 ng/mL (> or = 4.0); Vitamin B12 270 pg/mL (200-900)
[2025-01-25 18:42] LABS: Free T4 (Free Thyroxine) 0.95 ng/dL (0.71-1.85); Thyroid Stimulating Hormone 1.15 uIU/mL (0.32-4.0)
== END 2025-01-25 16:40 | disposition home or self-care (01) ==
LOC: HO.LAB 16:39
PROVIDERS: PCP Internal Medicine; Visit Provider Internal Medicine
DX: R35.0 Frequency of micturition (principal); E78.00 Pure hypercholesterolemia, unspecified; R30.0 Dysuria
CPT/HCPCS: 36415; 80053; 80061; 81003; 82607; 82746; 83036; 84439; 84443; 85025

== ENCOUNTER 2025-01-27 14:55 | Outpatient (AMB) | payer OTHER, SELFPAY ==
[2025-01-27 15:28] VITALS: BP 122/68; PULSE 84; RESP 14; TEMP 36.5; O2SAT 99; BMI 41.2
--- NOTE | 2025-01-27 15:28 | A.OFFPC_ITS ---
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 Patient had blood work done and is here for follow-up. [facility] Medical History (Updated 01/27/25 @ 15:48 by Indira Harry MD) Plantar fasciitis of left foot Epidermal cyst Hyperbilirubinemia Insomnia Bipolar 1 disorder GERD (gastroesophageal reflux disease) Hypercholesterolemia Obesity (BMI 30-39.9) Asthma Surgical History History of chest tube placement Family History (Updated 01/27/25 @ 15:49 by Indira Harry MD) Father Myocardial infarction Diabetes Mother Seizure Maternal Grandfather Myocardial infarction Brother In good health Myocardial infarction Sister In good health Paternal Uncle Schizophrenia Other Acute CVA (cerebrovascular accident) Mental health problem Substance abuse Social History Housing: Apartment Alcohol intake: never Patient Tobacco Use Status: Never used Tobacco Tobacco use type: Cigarette e-Cigarette/Vaping Use: Never Used Second Hand Smoke Exposure: Yes service: No Current occupational status: disabled Cognitive needs: No Hearing needs: No Vision needs: Yes Questionnaire PHQ-9 Over the last 2 weeks, how often have you been bothered by any of the following problems? 1. Little interest or pleasure in doing things: not at all 2. Feeling down, depressed, or hopeless: not at all 3. Trouble falling or staying asleep, or sleeping too much: not at all 4. Feeling tired or having little energy: not at all 5. Poor appetite or overeating: not at all 6. Feeling bad about yourself - or that you are a failure or have let yourself or your family down: not at all 7. Trouble concentrating on things, such as reading the newspaper or watching television: not at all 8. Moving or speaking so slowly that other people could have noticed. Or the opposite - being so fidgety or restless that you have been moving around a lot more than usual: not at all 9. Thoughts that you would be better off or of hurting yourself in some way: not at all Total score: 0 Source: Developed by Drs. Paresh Maldonado, Lizeth Layne, Kvng Hermosillo and colleagues, with an educational adelina from [employer]. Thrive Questionnaire Date Thrive assessed: 01/27/25 I am a: Patient What is your living situation today?: I have a steady place to live Within the past 12 months, did the food you bought not last and you didn't have the money to get more?: Never true Within the past 12 months, did you worry whether your food would run out before you got money to buy more?: Never true Do you have trouble paying for medicines?: No Do you have trouble getting transportation to medical appointments?: No Do you have trouble paying your heating and electricity bill?: No Do you have trouble taking care of your child, family member or friend?: No Do you have trouble with day-to-day activities such as bathing, preparing meals, shopping, managing finances, etc.?: No Are you currently unemployed and looking for a job?: No Are you interested in more education?: No Please select the resources that you would like help with: None THRIVE Score: 0 AUDIT C Alcohol Use Questionnaire (AUDIT-C) 1. How often do you have a drink containing alcohol?: Never 3. How often do you have six or more drinks on one occasion?: Never Total Score: 0 ZOILA-7 AMB Questionnaire ZOILA-7 Date ZOILA - 7 assessed: 01/27/25 Feeling nervous, anxious, or on edge: 0 = Not at all Not being able to stop or control worryin = Not at all Worrying too much about different things: 0 = Not at all Trouble relaxin = Not at all Being so restless that it is hard to sit still: 0 = Not at all Becoming easily annoyed or irritable: 0 = Not at all Feeling afraid as if something awful might happen: 0 = Not at all Total ZOILA-7 score (0-4 normal; 5-9 mild; 10-14 moderate; 15-21 severe): 0 Source: Developed by Drs. Paresh Maldonado, Lizeth Layne, Kvng Hermosillo and colleagues, with an educational adelina from [employer]. Review of Systems Const Denies poor appetite and Denies weakness Eyes Denies no additional complaints ENT Reports Normal hearing present, Denies dizziness, Denies nasal congestion, Denies tinnitus and Denies sore throat Card Denies chest pain, Denies syncope, Denies rapid heart rate and Denies dyspnea Resp Denies cough and Denies dyspnea GI Denies change in stool character, Reports constipation, Denies diarrhea, Denies nausea and Denies vomiting Denies dysuria and Denies urinary frequency Neuro Reports Normal hearing present, Denies confusion, Denies dizziness, Denies syncope and Denies weakness Psych Denies confusion Physical exam (Primary Care) Vital Signs: Last Vital Signs Temp 97.7 F 01/27/25 15:28 Pulse 84 01/27/25 15:28 Resp 14 01/27/25 15:28 BP 122/68 01/27/25 15:28 Pulse Ox 99 01/27/25 15:28 Oxygen Delivery Method Room Air 01/27/25 15:28 BMI result Body Mass Index 41.2 Tobacco/Smoking Status: Tobacco use Status Tobacco use date assessed 01/27/25 01/27/25 15:34 Patient Tobacco Use Status Never used Tobacco 01/27/25 15:34 Tobacco use type Cigarette 01/27/25 15:34 e-Cigarette/Vaping Use Never Used 01/27/25 15:34 PHQ-9: PHQ-9 Score PHQ-9: Total score 0 01/27/25 15:34 Thrive Assessment: Date of Thrive Assessment Date Thrive assessed 01/27/25 01/27/25 15:34 Const General: No confusion Orientation/consciousness: No confusion HENMT Head: Yes normocephalic Ears: external ears normal and TM's normal bilaterally Face and sinus: Yes normal facial exam Mouth: moist mucous membranes Throat: Yes tonsils normal Eyes Conjunctivae: conjunctivae normal Pupils: Equal, round and reactive pupils present and Pupil accommodation reflex normal Direct Ophthalmoscopy: normal light reflex Neck Neck: No lymphadenopathy Thyroid: Thyroid normal Chest Chest palpation & inspection: normal inspection of the chest Resp Effort & Inspection: normal respiratory effort and no audible wheezes Auscultation: clear to auscultation bilaterally, no crackles, no wheezes and lung sounds not diminished Cardio Rate: regular rate Rhythm: regular rhythm Peripheral pulses: radial pulses present and dorsalis pedis present GI Other: Visual inspection normal Palpation (GI): no masses Auscultation: normal bowel sounds and normoactive bowel sounds Rectal Exam - Male: Yes deferred Male General Exam: Yes normal external exam Skin General skin exam: no rashes or lesions noted Rashes: no rashes Neuro General: No confusion Cranial nerves: Yes Equal, round and reactive pupils present and Yes Normal hearing present Cognition (Neuro): normal cognition Gait exam (Neuro): Normal gait present Motor exam (neuro): 5/5 motor strength present throughout Deep tendon reflexes (DTR's): Right brachioradialis reflex intensity grade: 2+, Left brachioradialis reflex intensity grade: 2+, Right patellar reflex intensity grade: 2+ and Left patellar reflex intensity grade: 2+ Extrem General: No edema Coding Level of Care Code Est Pt Prev Care 18-39y(15790) Diagnoses Annual physical exam Z00.00 Morbid obesity E66.01 Mild intermittent asthma without complication J45.20 Asthma severity: mild Asthma persistence: intermittent Asthma complication type: uncomplicated Hypercholesterolemia E78.00 Gastroesophageal reflux disease without esophagitis K21.9 Esophagitis presence: without esophagitis Bipolar 1 disorder F31.9 Fatty liver K76.0 Assessment & Plan Assessment & Plan (1) Annual physical exam: Code(s): Z00.00 - Encounter for general adult medical examination without abnormal findings Category: Medical Plan: Patient is advised to eat healthy, keep well hydrated, keep active and have adequate sleep. (2) Morbid obesity: Code(s): E66.01 - Morbid (severe) obesity due to excess calories Category: Medical Plan: Diet and exercise (3) Asthma: Code(s): J45.909 - Unspecified asthma, uncomplicated Category: Medical Qualifiers: Asthma severity: mild Asthma persistence: intermittent Asthma complication type: uncomplicated Qualified Code(s): J45.20 - Mild intermittent asthma, uncomplicated Plan: Stable (4) Hypercholesterolemia: Code(s): E78.00 - Pure hypercholesterolemia, unspecified Category: Medical Plan: Avoid fried foods, chicken skin, eggs, butter margarine, pastries and meat. Be it pork or beef they have a lot of cholesterol noted triglyceride to be very high. Patient is advised to retest in 3 months discussed about diet (5) GERD (gastroesophageal reflux disease): Code(s): K21.9 - Gastro-esophageal reflux disease without esophagitis Category: Medical Qualifiers: Esophagitis presence: without esophagitis Qualified Code(s): K21.9 - Gastro-esophageal reflux disease without esophagitis Plan: Avoid the foods that causes that usually spicy foods, tomato products, juices, coffee, soda and foods that your sensitive to. After eating do not lie down, allow 3-4 hours before in lie down. And keep the head of bed above 30 degrees to avoid the acid from going up. (6) Bipolar 1 disorder: Comment: decline counselling Code(s): F31.9 - Bipolar disorder, unspecified Category: Medical Plan: Continue with counseling and therapy (7) Fatty liver: Code(s): K76.0 - Fatty (change of) liver, not elsewhere classified Category: Medical Plan: Advised low-fat diet and exercise Orders: Orders Lipid Panel 3 Months E78.00 - Pure hypercholesterolemia, unspecified [place] upper GI series Today R13.10 - Dysphagia, unspecified Comprehensive Met. Panel 3 Months E78.00 - Pure hypercholesterolemia, unspecified
--- OUTSIDE RECORDS SUMMARY | 2025-01-27 16:37 | XMS_ITS | Clinical Summary ---
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 Name Role Phone Unavailable Primary Care Provider Unavailabl e Allergies No known active allergies Medications No known medications Social History Tobacco Use Types Packs/Day Years Used Date Smoking Tobacco: Never Smokeless Tobacco: Never Tobacco Cessation:Counseling Given: Not Answered Sex and Gender Information Value Date Recorded Sex Assigned at Male 01/13/2023 12:50 PM EST Legal Sex Male 12:49 PM EST Gender Identity Male 01/13/2023 12:50 PM EST Sexual Orientation Choose not to disclose 2022 8:48 AM EST Last Filed Vital Signs Vital Sign Reading Time Taken Comments Blood Pressure 140/80 01/15/2023 10:18 AM EST Pulse - - Temperature - - Respiratory Rate - - Oxygen Saturation - - Inhaled Oxygen Concentration - - Weight - - Height - - Body Mass Index - - Plan of Treatment Health Maintenance Due Date Last Done Comments Dental Oral Exam 1992 Dental Prophylaxis 1992 Dental X-Ray: Full Mouth 1992 Depression Screening 1992 HIV Screening 1992 SDOH Screening 1992 Alcohol/Substance Use Screening 2004 Family Planning (PISQ) 2007 Hepatitis C Screening 2010 Hepatitis B Vaccines (1 of 3 - 19+ 3-dose series) 2011 Tobacco Screening 01/15/2024 01/15/2023 Dental X-Ray: Bitewings 01/16/2024 01/15/2023 COVID-19 Vaccine (1 - 2023-2 5 season) 2024 Influenza Vaccine (#1) 2024 DTaP/Tdap/Td Vaccines (2 - T d or Tdap) 03/11/2028 03/11/2018 Zoster Vaccines (1 of 2) 2042 RSV Patients and Pa tients Aged 60 years or older (1 - 1-dose 75+ series) 2067 HIB Vaccines Aged Out No longer eligi ble based on patient's age to complete this topic HPV Vaccines Aged Out No longer eligi ble based on patient's age to complete this topic Hepatitis A Vaccines Aged Out No long er eligible based on patient's age to complete this topic IPV Vaccines Aged Out No longer eligi ble based on patient's age to complete this topic Meningococcal Vaccine Aged Out No effie johnny eligible based on patient's age to complete this topic Pneumococcal Vaccine: Pediat rics (0 to 5 Years) and At-Risk Patients (6 to 49) Years) Aged Out No longer elig ible based on patient's age to complete this topic RSV under 20 months Aged Out No longe r eligible based on patient's age to complete this topic Rotavirus Vaccines Aged Out No longer eligible based on patient's age to complete this topic Procedures Procedure Name Priority Date/Time Associated Diagnosis Comments BITEWING - SINGLE RADIOGRAPHIC IMAGE Routine 01/15/2023 10:00 AM EST Recurrent dental caries extending into dentin from Last 3 Months or Most Recently Relevant to Health Maintenance Insurance [facility] [place] [id number]
== END 2025-01-27 16:07 | disposition home or self-care (01) ==
PROVIDERS: PCP Internal Medicine; Visit Provider Internal Medicine
DX: Z00.00 Encounter for general adult medical examination without abnormal findings (principal); E66.01 Morbid (severe) obesity due to excess calories; F31.9 Bipolar disorder, unspecified; Z68.41 Body mass index [BMI] 40.0-44.9, adult; J45.20 Mild intermittent asthma, uncomplicated; E78.00 Pure hypercholesterolemia, unspecified; K21.9 Gastro-esophageal reflux disease without esophagitis; K76.0 Fatty (change of) liver, not elsewhere classified

== ENCOUNTER → 2025-01-27 14:55 | Outpatient (BNVA) | payer OTHER, SELFPAY | PROVIDERS: PCP Internal Medicine; Visit Provider Internal Medicine | DX: Z00.00 Encounter for general adult medical examination without abnormal findings (principal); E66.01 Morbid (severe) obesity due to excess calories; J45.20 Mild intermittent asthma, uncomplicated; E78.00 Pure hypercholesterolemia, unspecified; K21.9 Gastro-esophageal reflux disease without esophagitis; F31.9 Bipolar disorder, unspecified; K76.0 Fatty (change of) liver, not elsewhere classified | CPT/HCPCS: 99395 ==

== ENCOUNTER 2025-04-09 12:14 | Emergency (ER) | payer OTHER, SELFPAY ==
[2025-04-09 12:16] VITALS: BP 118/69; PULSE 81; RESP 18; TEMP 36.7; O2SAT 97; BMI 41.0
--- NOTE | 2025-04-09 12:17 | ED_ITS ---
HPI - General Adult General Chief complaint: Upper Respiratory Symptoms Stated complaint: Body aches, sore throat, dizziness Time Seen by Provider: 04/09/25 13:07 Source: patient, RN notes reviewed and old records reviewed Mode of arrival: ambulatory Limitations: no limitations History of Present Illness ED Provider: Gabriel HPI narrative: Patient is a 35-year-old male with history of obesity, GERD, hepatic steatosis, asthma presenting to the emergency department with complaint of sore throat, body aches, headache and lightheadedness since this morning. Denies any known sick contacts. Denies fever. Also complains of bilateral ear pain. complaint: sore throat, body aches Onset (ago): hour(s) Related Data Previous Rx's ?Medication ?Instructions ?Recorded amoxicillin 875 mg tablet 875 mg PO BID #14 tabs 04/09/25 Allergies Allergy/AdvReac Type Severity Reaction Status Date / Time No Known Allergies Allergy Verified 04/09/25 12:19 Review of Systems Review of Systems: as per hpi Yes all other systems are reviewed and are negative Constitutional: Constitutional: Reports as per HPI PMFSH Past Medical History Medical History (Updated 04/09/25 @ 14:31 by Latrice Rios NP) Plantar fasciitis of left foot Epidermal cyst Hyperbilirubinemia Insomnia Bipolar 1 disorder GERD (gastroesophageal reflux disease) Hypercholesterolemia Obesity (BMI 30-39.9) Asthma Surgical History History of chest tube placement Family History Family History (Updated 01/27/25 @ 15:49 by Indira Harry MD) Father Myocardial infarction Diabetes Mother Seizure Maternal Grandfather Myocardial infarction Brother In good health Myocardial infarction Sister In good health Paternal Uncle Schizophrenia Other Acute CVA (cerebrovascular accident) Mental health problem Substance abuse Social History Social History Housing: Apartment Alcohol intake: never Patient Tobacco Use Status: Never used Tobacco Tobacco use type: Cigarette e-Cigarette/Vaping Use: Never Used Second Hand Smoke Exposure: Yes Advance Directives: No Advance Directives Information Provided: Yes service: No Current occupational status: disabled Cognitive needs: No Hearing needs: No Vision needs: Yes Physical Exam ED Vital Signs: Vital Signs - 24 hr 04/09/25 12:16 Temperature 98.0 F Pulse Rate 81 Respiratory Rate 18 Blood Pressure 118/69 Pulse Oximetry 97 Oxygen Delivery Method Room Air BMI result Body Mass Index 41.0 Vital signs have been reviewed and appear to be correct. Blood pressure normal. Heart rate normal. Respiratory rate normal. Temperature normal. Oxygen saturation normal. Const General: cooperative, healthy appearing and no acute distress Orientation/consciousness: oriented to person, oriented to place, oriented to time and patient oriented x3 Limitations: no limitations HENMT Head: Yes normocephalic and Yes atraumatic Ears: external ears normal, TM normal on the right, mastoids normal bilaterally, no periauricular adenopathy and TM abnormal bulging on the left, erythematous on the left and with fluid behind the TM on the left General nose exam: Normal external nose present Face and sinus: Yes face symmetric Mouth: oropharynx normal and moist mucous membranes Throat: Yes uvula midline Eyes Pupils: Equal, round and reactive pupils present Neck Neck: Yes normal visual inspection and Yes supple Resp Effort & Inspection: normal respiratory effort and able to speak in complete se ntences Auscultation: clear to auscultation bilaterally Cardio Rate: regular rate Rhythm: regular rhythm Heart sounds: S1 normal heart sound present and S2 normal heart sound present GI Palpation (GI): Soft to palpation and nontender Auscultation: normoactive bowel sounds General: Yes no CVA tenderness Back/Spine/Pelvis Back: no CVA tenderness Skin General skin exam: elasticity normal and turgor normal Neuro General: oriented to person, oriented to place, oriented to time, patient oriented x3, moves all extremities, no focal motor deficits and CN's II-XI intact bilaterally Cranial nerves: Yes Equal, round and reactive pupils present Cognition (Neuro): normal cognition Extrem General: Yes full ROM, Yes no pedal edema and Yes no calf tenderness Psych Mental Status: mental status grossly normal Affect: normal affect Thought process: Normal thought process present Course Course Course Narrative: 04/09/25 1217 [address] This is a Rapid Medical Examination (RME) performed by Tavo Kathleen PA-C in triage. Full HPI, ROS, assessment and treatment plan per primary provider in the Main ED. Hx: 35 yo M hx of here for eval of GERD, hepatic steatosis, asthma here for eval of sore thoat, odynophagia, headache, myalgias, and dizziness on waking this morning. reports symptoms have improved since this morning after drinking tea and resting. no known sick contacts. PE/vitals: posterior oropharynx mildly erythematous, no tonsilar exudates or edema, uvula midline, controlling secretions, speaking in complete sentences, no muffled voice. Plan: viral/strep swabs Medical Decision Making Medical Decision Making [facility] Narrative: Patient is a 35-year-old male with history of obesity, GERD, hepatic steatosis, asthma presenting to the emergency department with complaint of sore throat, body aches, headache and lightheadedness since this morning. On exam patient is awake, A+Ox3, VS WNL, afebrile, normal neurological exam without focal deficits, physical exam findings as above. Given reported symptoms and physical exam findings, initial differential includes but is not limited to strep vs viral pharyngitis, covid, flu, other viral illness, otitis media, otitis externa. Physical exam consistent with OM left ear. Will treat with amoxicillin. Discussed with patient that the antibiotics will likely not improve his other symptoms as they are likely due to viral illness. Advised Tylenol, ibuprofen, gargling with warm salt water. Follow up with PCP as needed. Return precautions discussed. Patient verbalized understanding of and agreement with plan. Differential Diagnosis Differential Diagnoses: The differential diagnosis associated with the presentation includes as per [facility] Admission/Observation Consideration of admission/observation: Escalation of care including admission/observation considered Patient would have been admitted to the hospital had their work up had any findings where hospital admission was appropriate and their clinical presentation warranted hospital admission. Lab Data [facility] Lab Attestation statement: I reviewed the patient's lab results. as per [facility] Labs: Lab Results 04/09/25 Range/Units 12:31 Influenza Type A (PCR) NEGATIVE (Negative) Influenza Type B (PCR) NEGATIVE (Negative) RSV RNA Qual (PCR) NEGATIVE (Negative) SARS-CoV-2 RNA (RT-PCR) NEGATIVE (Negative) S. pyogenes GrpA LEIGHA Negative (Negative) External Record Review External record reviewed: Inpatient record, Office record and Outpatient record Discharge Plan Discharge Clinical Impression: Otitis media of left ear, Viral infection Patient Disposition: Home, Self-Care Instructions: Ear Infection (ED), Viral Syndrome (ED) Additional Instructions: You were evaluated in the emergency department today for ear pain, sore throat, body aches. Your evaluation suggests that your pain is due to an ear infection and likely also a viral infection. Please take your prescribed antibiotics as directed for the full course of the medication. You can apply warm compresses to the area for 10-15 minutes at a time several times daily. We recommend that you take 650 mg of Tylenol or 600 mg of ibuprofen every 6 hours as needed. If necessary, you can alternate these medications every 3 hours. For example, at 9:00 a.m. take Tylenol, then at noon take ibuprofen, then at 3:00 p.m. take Tylenol, etc.. Please follow up with your primary care provider within two days. Return to the emergency department if you experience hearing loss, discharge from your ear, headaches, fevers, recurrent vomiting, or any other concerning symptoms. Prescriptions: New amoxicillin 875 mg tablet 875 mg PO BID Qty: 14 0RF Print Language: Bulgarian
[2025-04-09 13:12] LABS: IDNOW Serial# 55D5AD1C; Strep A Nucleic Acid Negative (Negative)
[2025-04-09 13:41] LABS: Influenza A PCR NEGATIVE (Negative); Influenza B PCR NEGATIVE (Negative); Resp Syncy Virus RNA Qual PCR NEGATIVE (Negative); SARS COV2 PCR INHOUSE NEGATIVE (Negative)
[2025-04-09 14:47] VITALS: BP 115/66; PULSE 65; RESP 16; TEMP 37.1; O2SAT 96
== END 2025-04-09 14:48 | disposition home or self-care (01) ==
PROVIDERS: Physician Assistant Medical; Emergency Provider Emergency Medicine; PCP Internal Medicine
DX: B34.9 Viral infection, unspecified (principal); H66.92 Otitis media, unspecified, left ear; J02.9 Acute pharyngitis, unspecified; Z03.818 Encounter for observation for suspected exposure to other biological agents ruled out; J45.909 Unspecified asthma, uncomplicated
CPT/HCPCS: 0241U; 87651; 99282; 99283

== ENCOUNTER 2025-04-11 02:00 | Emergency (ER) | payer OTHER, SELFPAY ==
[2025-04-11 02:01] VITALS: BP 129/83; PULSE 84; RESP 20; TEMP 37; O2SAT 98; BMI 42.0
--- NOTE | 2025-04-11 02:42 | ED_ITS ---
HPI - General Adult General Chief complaint: Upper Respiratory Symptoms Stated complaint: General Medical Time Seen by Provider: 04/11/25 02:42 History of Present Illness ED Provider: Bright PLUNKETT narrative: The patient is a 35-year-old male who has not been feeling well for several days. He was here a day and a half ago on Thursday. At that time he was complaining of bilateral ear pain, sore throat, and body aches. He was thought to possibly have a left otitis media and was prescribed Augmentin. He returns tonight stating that he feels his ear discomfort is better but he feels he is producing a lot of green nasal discharge, a sense of facial congestion and sore throat, and ongoing body aches. No definite fever. He says he has not been coughing and he has no shortness of breath. He says that he feels dehydrated. He says that he feels weak. Related Data Previous Rx's ?Medication ?Instructions ?Recorded amoxicillin 875 mg tablet 875 mg PO BID #14 tabs 04/09/25 acetaminophen 500 mg capsule 1,000 mg (2 x 500 mg) PO Q8H PRN 04/11/25 fever or pain #14 caps ibuprofen 400 mg tablet 400 mg PO Q6H PRN pain #14 tabs 04/11/25 Allergies Allergy/AdvReac Type Severity Reaction Status Date / Time No Known Allergies Allergy Verified 04/11/25 02:03 Review of Systems Review of Systems: Yes all other systems are reviewed and are negative PMF Past Medical History Medical History (Updated 04/11/25 @ 04:55 by Jalil Novoa MD) Plantar fasciitis of left foot Epidermal cyst Hyperbilirubinemia Insomnia Bipolar 1 disorder GERD (gastroesophageal reflux disease) Hypercholesterolemia Obesity (BMI 30-39.9) Asthma Surgical History History of chest tube placement Family History Family History (Updated 01/27/25 @ 15:49 by Indira Harry MD) Father Myocardial infarction Diabetes Mother Seizure Maternal Grandfather Myocardial infarction Brother In good health Myocardial infarction Sister In good health Paternal Uncle Schizophrenia Other Acute CVA (cerebrovascular accident) Mental health problem Substance abuse Social History Social History Housing: Apartment Alcohol intake: never Patient Tobacco Use Status: Never used Tobacco Tobacco use type: Cigarette e-Cigarette/Vaping Use: Never Used Second Hand Smoke Exposure: Yes Advance Directives: No Advance Directives Information Provided: Yes service: No Current occupational status: disabled Cognitive needs: No Hearing needs: No Vision needs: Yes Physical Exam ED Vital Signs: Vital Signs - 24 hr 04/11/25 02:01 04/11/25 05:16 Temperature 98.6 F 98.7 F Pulse Rate 84 70 Respiratory Rate 20 16 Blood Pressure 129/83 122/77 Pulse Oximetry 98 97 Oxygen Delivery Method Room Air Room Air BMI result Body Mass Index 42.0 Const Other: The patient is awake and alert. He does not appear in acute distress. His voice seems normal. He is handling his secretions normally. HENMT Other: Face is symmetrical. Tympanic membranes are normal bilaterally. Ear canals are clear. The left tympanic membrane looks slightly dollar than the right tympanic membrane but there is no distortion of the architecture to the left tympanic membrane. There is some slight erythema to the floor of the external auditory canal on the left. The patient says that he has been cleaning his left ear with alcohol. The pharynx appears entirely normal. No trismus. Eyes General: appearance normal, both eyes and all related structures Neck Other: Neck is supple. I do not appreciate any discrete adenopathy. The patient reports some tenderness with palpation of the left mid anterior cervical chain but I do not appreciate any discrete lymph nodes. Resp Effort & Inspection: normal respiratory effort Auscultation: clear to auscultation bilaterally Cardio Rate: regular rate Rhythm: regular rhythm Heart sounds: S1 normal heart sound present and S2 normal heart sound present Skin Other: Skin is dry and unremarkable Neuro Other: The patient is awake and alert with a normal mental status. Eye movements are intact. Face is symmetrical. Speech is clear. He moves his extremities normally and appropriately. He seems entirely neurologically intact. Extrem Other: No peripheral edema Medications Administered Discontinued Medications Generic Name Dose Route Start Last Admin Trade Name Virgilq PRN Reason Stop Dose Admin Acetaminophen 975 mg 04/11/25 02:55 04/11/25 03:17 Acetaminophen 325 Mg Tablet PO 04/11/25 02:56 975 mg ONCE ONE Administration Ketorolac Tromethamine 30 mg 04/11/25 02:55 04/11/25 03:17 Ketorolac Tromethamine 30 Mg/Ml Vial IM 04/11/25 02:56 30 mg ONCE ONE Administration Ondansetron HCl 4 mg 04/11/25 02:55 04/11/25 03:21 Ondansetron Odt 4 Mg Tab.Carly ALEXIS 04/11/25 02:56 Not Given ONCE ONE Medical Decision Making Medical Decision Making MDM Narrative: The patient returns to the emergency room 2 days after being started on Augmentin for a possible left otitis media. He says his left ear feels better but he continues to have lot of nasal congestion and body aches. He is testing negative for strep, COVID, influenza, and RSV. I suspect that he probably has some nonspecific viral illness causing an upper respiratory infection. He was given an IM injection of ketorolac and also oral acetaminophen and ondansetron. He was observed. He felt considerably better and felt well enough for discharge. He should follow up with his PCP. His left ear looks quite good today. He was advised to finish his antibiotics. Lab Data Labs: Lab Results 04/11/25 Range/Units 02:54 Influenza Type A (PCR) NEGATIVE (Negative) Influenza Type B (PCR) NEGATIVE (Negative) RSV RNA Qual (PCR) NEGATIVE (Negative) SARS-CoV-2 RNA (RT-PCR) NEGATIVE (Negative) S. pyogenes GrpA LEIGHA Negative (Negative) Discharge Plan Discharge Clinical Impression: Nasal congestion, Body aches Patient Disposition: Home, Self-Care Additional Instructions: Your testing in the emergency room today seems reassuring. Your left ear I think is looking better. You may use ibuprofen and acetaminophen as needed for discomfort. Drink a lot of fluids. Please finish the course of antibiotics. Please follow up soon with your regular doctor for a recheck and 2nd opinion. Return to the emergency room if significantly worse. Prescriptions: New ibuprofen 400 mg tablet 400 mg PO Q6H PRN (Reason: pain) Qty: 14 0RF acetaminophen 500 mg capsule 1,000 mg PO Q8H PRN (Reason: fever or pain) Qty: 14 0RF No Action amoxicillin 875 mg tablet 875 mg PO BID Qty: 14 0RF Referrals: Po,Indira Murcia MD [Primary Care Provider] - Stand Alone Forms: Work/School Release Print Language: Japanese
[2025-04-11 03:16] LABS: IDNOW Serial# 55D5AD1C; Strep A Nucleic Acid Negative (Negative)
[2025-04-11] MEDS: Ketorolac Tromethamine 30 MG/ML VIAL IM (03:17)
[2025-04-11] MEDS: Acetaminophen 325 MG TABLET 975 MG PO (03:17)
[2025-04-11 03:44] LABS: Influenza A PCR NEGATIVE (Negative); Influenza B PCR NEGATIVE (Negative); Resp Syncy Virus RNA Qual PCR NEGATIVE (Negative); SARS COV2 PCR INHOUSE NEGATIVE (Negative)
[2025-04-11 05:16] VITALS: BP 122/77; PULSE 70; RESP 16; TEMP 37.1; O2SAT 97
[2025-04-11 05:34] VITALS: BP 122/77; PULSE 70; RESP 16; TEMP 37.1; O2SAT 97
== END 2025-04-11 05:35 | disposition home or self-care (01) ==
PROVIDERS: Emergency Provider Emergency Medicine; PCP Internal Medicine
DX: R09.81 Nasal congestion (principal); M79.10 Myalgia, unspecified site; Z03.818 Encounter for observation for suspected exposure to other biological agents ruled out
CPT/HCPCS: 0241U; 87651; 96372; 99284; J1885

== ENCOUNTER 2025-05-05 15:44 | Outpatient (AMB) | payer OTHER, SELFPAY ==
--- OUTSIDE RECORDS SUMMARY | 2025-05-05 15:48 | XMS_ITS | Clinical Summary ---
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 Name Role Phone Unavailable Primary Care Provider [...] 1992 HIV Screening 1992 SDOH Screening 1992 Disability Screening 1992 Alcohol/Substance Use Screening 2004 Family Planning (PISQ) 2007 Hepatitis C Screening 2010 Hepatitis B Vaccines (1 of 3 - 19+ 3-dose series) 2011 Tobacco Screening 01/15/2024 01/15/2023 Dental X-Ray: Bitewings 01/16/2024 01/15/2023 COVID-19 Vaccine (1 - 2023-2 5 season) 2024 Influenza Vaccine (Season Ended) 2025 DTaP/Tdap/Td Vaccines (2 - T d or [...] patient's age to complete this topic Meningococcal B Vaccine Aged Out No l onger eligible based on patient's age to complete [...] Most Recently Relevant to Health Maintenance Insurance [facility] MEDICAID STAND ADULT
--- NOTE | 2025-05-05 15:57 | A.OFFPC_ITS ---
Vital Signs 05/05/25 16:00 Height 5 ft 4 in Weight 239 lb 4 oz BMI 41.1 BP 132/64 Blood Pressure Location Lt brachial Position Sitting Pulse 81 Pulse Source Pulse Oximeter Temp 97.3 F Temp Source Temporal Artery Scan Pulse Oximetry (%) 96 Oxygen Delivery Method Room Air Intake Visit Reasons: 3 Month F/U Intake Note: Patient is here to follow up on GERD, Obesity, Low back pain. 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 loosing weight , jogging PFSH Medical History (Updated 05/05/25 @ 16:45 by Indira Harry MD) Plantar fasciitis of left foot Epidermal cyst Hyperbilirubinemia Insomnia Bipolar 1 disorder GERD (gastroesophageal reflux disease) Hypercholesterolemia Obesity (BMI 30-39.9) Asthma Surgical History History of chest tube placement Family History Father Myocardial infarction Diabetes Mother Seizure Maternal Grandfather Myocardial infarction Brother In good health Myocardial infarction Sister In good health Paternal Uncle Schizophrenia Other Acute CVA (cerebrovascular accident) Mental health problem Substance abuse Social History Housing: Apartment Alcohol intake: never Patient Tobacco Use Status: Never used Tobacco Tobacco use type: Cigarette e-Cigarette/Vaping Use: Never Used Second Hand Smoke Exposure: Yes service: No Current occupational status: disabled Cognitive needs: No Hearing needs: No Vision needs: Yes (Glasses) Questionnaire PHQ-9 Over the last 2 weeks, how often have you been bothered by any of the following problems? 1. Little interest or pleasure in doing things: several days 2. Feeling down, depressed, or hopeless: more than half the days 3. Trouble falling or staying asleep, or sleeping too much: not at all 4. Feeling tired or having little energy: nearly every day 5. Poor appetite or overeating: several days 6. Feeling bad about yourself - or that you are a failure or have let yourself or your family down: several days 7. Trouble concentrating on things, such as reading the newspaper or watching television: more than half the days 8. Moving or speaking so slowly that other people could have noticed. Or the opposite - being so fidgety or restless that you have been moving around a lot more than usual: several days 9. Thoughts that you would be better off or of hurting yourself in some way: not at all Total score: 11 Depression Screening Interpretation: Positive Depression Screening Done: Yes Source: Developed by Drs. Paresh Maldonado, Lizeth Layne, Kvng Hermosillo and colleagues, with an educational adelina from [employer] Thrive Questionnaire Date Thrive assessed: 05/05/25 I am a: Patient What is your living situation today?: I have a place to live, but I am worried about losing it in the future Within the past 12 months, did the food you bought not last and you didn't have the money to get more?: Never true Within the past 12 months, did you worry whether your food would run out before you got money to buy more?: Never true Do you have trouble paying for medicines?: Yes Do you have trouble getting transportation to medical appointments?: No Do you have trouble paying your heating and electricity bill?: I choose not to answer this question Do you have trouble taking care of your child, family member or friend?: No Do you have trouble with day-to-day activities such as bathing, preparing meals, shopping, managing finances, etc.?: I choose not to answer this question Are you currently unemployed and looking for a job?: No Are you interested in more education?: Yes Currently or been in a relationship where the following occur: I choose not to answer THRIVE Score: 1 ZOILA-7 AMB Questionnaire ZOILA-7 Date ZOILA - 7 assessed: 01/27/25 Source: Developed by Drs. Paresh Maldonado, Lizeth Layne, Kvng Hermosillo and colleagues, with an educational adelina from [employer] Physical exam (Primary Care) Vital Signs: Last Vital Signs Temp 97.3 F 05/05/25 16:00 Pulse 81 05/05/25 16:00 BP 132/64 05/05/25 16:00 Pulse Ox 96 05/05/25 16:00 Oxygen Delivery Method Room Air 05/05/25 16:00 BMI result Body Mass Index 41.1 Tobacco/Smoking Status: Tobacco use Status Tobacco use date assessed 05/05/25 05/05/25 16:00 Patient Tobacco Use Status Never used Tobacco 05/05/25 16:00 Tobacco use type Cigarette 05/05/25 16:00 e-Cigarette/Vaping Use Never Used 05/05/25 16:00 PHQ-9: PHQ-9 Score PHQ-9: Total score 11 05/05/25 16:41 Depression Screening Interpretation: Positive Thrive Assessment: Date of Thrive Assessment Date Thrive assessed 05/05/25 05/05/25 16:00 Currently or been in a relationship where the following occur: I choose not to answer Const General: alert; No acute distress Eyes Conjunctivae: conjunctivae normal Resp Auscultation: clear to auscultation bilaterally Cardio Rate: regular rate Rhythm: regular rhythm GI Inspection: Yes normal to inspection Extrem General: Yes normal to inspection and No edema Coding Level of Care Code Est Pt Level 4 (83314) Complex EM visit Add On G2211 Diagnoses Morbid obesity E66.01 Gastroesophageal reflux disease without esophagitis K21.9 Esophagitis presence: without esophagitis Vitamin B 12 deficiency E53.8 Fatty liver K76.0 Bipolar 1 disorder F31.9 Hypercholesterolemia E78.00 Tinea pedis B35.3 Assessment & Plan Assessment & Plan (1) Morbid obesity: Code(s): E66.01 - Morbid (severe) obesity due to excess calories Category: Medical Plan: And exercise (2) GERD (gastroesophageal reflux disease): Code(s): K21.9 - Gastro-esophageal reflux disease without esophagitis Category: Medical Qualifiers: Esophagitis presence: without esophagitis Qualified Code(s): K21.9 - Gastro-esophageal reflux disease without esophagitis Plan: Avoid the foods that causes that usually spicy foods, tomato products, juices, coffee, soda and foods that your sensitive to. After eating do not lie down, allow 3-4 hours before in lie down. And keep the head of bed above 30 degrees to avoid the acid from going up. (3) Vitamin B 12 deficiency: Code(s): E53.8 - Deficiency of other specified B group vitamins Category: Medical Plan: Vitamin B12 1000 mcg once a day (4) Fatty liver: Code(s): K76.0 - Fatty (change of) liver, not elsewhere classified Category: Medical Plan: Low-fat diet and exercise (5) Bipolar 1 disorder: Comment: decline counselling Code(s): F31.9 - Bipolar disorder, unspecified Category: Medical Plan: Discussion about counseling and therapy but patient declined (6) Hypercholesterolemia: Code(s): E78.00 - Pure hypercholesterolemia, unspecified Category: Medical Plan: Avoid fried foods, chicken skin, eggs, butter margarine, pastries and meat. Be it pork or beef they have a lot of cholesterol LDL goal of less than 130 and triglyceride of less than 150 (7) Tinea pedis: Code(s): B35.3 - Tinea pedis Category: Medical Plan History of Present Illness The patient is a 35-year-old male presenting for a follow-up visit after being last seen in January 2025 for a physical exam. The patient has a history of morbid obesity and has been working on weight loss through dietary changes and increased physical activity, including jogging and walking. He reports feeling better and more energetic since adopting these lifestyle changes. The patient has asthma, which is a chronic condition, with no recent exacerbations or hospitalizations mentioned. The patient has hypercholesterolemia and is on a plan to achieve an LDL cholesterol goal of less than 130 mg/dL and triglycerides of less than 150 mg/dL. He is advised to follow a low-fat diet and exercise regimen to manage his cholesterol levels. The patient has gastroesophageal reflux disease (GERD) and is on a reflux management plan, taking vitamin B12 supplements due to a deficiency noted in previous blood work. The patient has a history of bipolar disorder, but there is no detailed discussion about its management in the conversation. The patient was treated conservatively for an upper respiratory tract infection with myalgia, which included a prescription for antibiotics that he did not take. He managed his symptoms with fluids and garlic, and the condition lasted almost a month. The patient has hepatic steatosis, associated with elevated liver function tests and hypertriglyceridemia noted in his last blood work. He is advised to follow a low-fat diet and exercise to manage these conditions. Health Maintenance - Low-fat diet and exercise recommended for weight management and cholesterol control - Vitamin B12 supplementation at 1000 mcg daily - Cholesterol management with LDL goal of less than 130 mg/dL and triglycerides less than 150 mg/dL Social History - Exercise: Engages in jogging and walking regularly for weight management - Diet: Consumes a low-fat diet, includes garlic and fruits, and eats less than one meal a day Review of Systems - Respiratory: Reports dry cough and congestion, denies recent asthma exace rbations - Musculoskeletal: Reports myalgia - Gastrointestinal: Reports symptoms of GERD - General: Reports feeling better and more energetic, denies feeling sluggish Physical Exam Results - Labs: Normal blood count, normal electrolytes, normal renal function, normal blood sugar, normal hemoglobin A1c, elevated liver function tests, high triglycerides, low vitamin B12 Plan The patient is advised to continue with a low-fat diet and regular exercise to manage his weight, cholesterol levels, and hepatic steatosis. Vitamin supplementation is recommended at a dose of 1000 mcg daily to address the deficiency noted in previous blood work. For hypercholesterolemia, the patient is encouraged to achieve an LDL cholesterol goal of less than 130 mg/dL and triglycerides of less than 150 mg/dL through dietary modifications and physical activity. The patient declined counseling and therapy for bipolar disorder, and no changes to his current management were discussed. The patient is advised to follow up for routine blood work closer to his next physical exam scheduled in January next year. Patient was informed and verbally consented to the use of an ambient scribe for clinic note documentation during this visit. Discussion Notes During the visit, I discussed with the patient the importance of maintaining a low-fat diet and regular exercise to manage his weight and cholesterol levels. We also talked about the need for vitamin B12 supplementation due to his deficiency. I emphasized the goals for his cholesterol management, including achieving an LDL cholesterol level of less than 130 mg/dL and triglycerides of less than 150 mg/dL. The patient declined counseling and therapy for his bipolar disorder, and we agreed to continue with his current management plan. I advised the patient to follow up for routine blood work closer to his next physical exam in January next year. Patient Instructions - Continue with a low-fat diet and regular exercise to manage weight and cholesterol. - Take vitamin B12 supplements at 1000 mcg daily. - Aim for LDL cholesterol less than 130 mg/dL and triglycerides less than 150 mg/dL. - Follow up for routine blood work before the next physical exam in January. Orders: Orders Complete Blood Count Auto Diff 8 Months E78.00 - Pure hypercholesterolemia, unspecified Thyroid Stimulating Hormone 8 Months E78.00 - Pure hypercholesterolemia, unspecified Comprehensive Met. Panel 8 Months E78.00 - Pure hypercholesterolemia, unspecified Free T4 (Free Thyroxine) 8 Months E78. - Pure hypercholesterolemia, unspecified Lipid Panel 8 Months E78. - Pure hypercholesterolemia, unspecified Vitamin B12 and Folate 8 Months E78.00 - Pure hypercholesterolemia, unspecified Medications: New clotrimazole 1% (Athlete's Foot (clotrimazole)) 1 appl topical BID 45 grams 2RF 4 weeks B35.3 - Tinea pedis
[2025-05-05 16:00] VITALS: BP 132/64; PULSE 81; TEMP 36.3; O2SAT 96; BMI 41.1
== END 2025-05-05 16:48 | disposition home or self-care (01) ==
LOC: HO.HMCH 15:45
PROVIDERS: PCP Internal Medicine; Visit Provider Internal Medicine
DX: K21.9 Gastro-esophageal reflux disease without esophagitis (principal); E66.01 Morbid (severe) obesity due to excess calories; F31.9 Bipolar disorder, unspecified; Z68.41 Body mass index [BMI] 40.0-44.9, adult; E53.8 Deficiency of other specified B group vitamins; K76.0 Fatty (change of) liver, not elsewhere classified; E78.00 Pure hypercholesterolemia, unspecified; B35.3 Tinea pedis

== ENCOUNTER → 2025-05-05 15:44 | Outpatient (BNVA) | payer OTHER, SELFPAY | PROVIDERS: PCP Internal Medicine; Visit Provider Internal Medicine | DX: K21.9 Gastro-esophageal reflux disease without esophagitis (principal); M54.50 Low back pain, unspecified; E66.01 Morbid (severe) obesity due to excess calories; E53.8 Deficiency of other specified B group vitamins; K76.0 Fatty (change of) liver, not elsewhere classified; F31.9 Bipolar disorder, unspecified; E78.00 Pure hypercholesterolemia, unspecified; B35.3 Tinea pedis; Z68.41 Body mass index [BMI] 40.0-44.9, adult | CPT/HCPCS: 99212 ==